=== PATIENT | female | born 1990 | race Caucasian/White ===

== ENCOUNTER 2017-05-24 16:35 | Outpatient (CLI) | payer BC, MEDICAID, SELFPAY ==
[2017-05-24 17:03] VITALS: BMI 31.1
--- NOTE | 2017-05-25 18:20 | OB.TRI.NOTE ---
History of Present Illness Date of Service: 05/24/17 Was patient seen by the physician?: No Reason For Visit: ABDOMINAL PAIN Date of Service: 05/24/17 Final NEHEMIAS: 09/29/17 Final NEHEMIAS Source: US <20 weeks Gestational age: 21 Weeks and 6 Days History of Present Illness: Presented to L&D with left sided pain that extended to upper abdomen. Denied any other symptoms. Home Medications Medication Instructions Recorded Ondansetron [Zofran Odt] 8 mg PO Q8H PRN PRN #20 tab 02/08/17 Vit Calc,Iron,Folic 1 tab PO DAILY 05/24/17 [ Vitamins] Allergies erythromycin base Allergy (Verified 05/24/17 17:05) Unknown Sulfa (Sulfonamide Antibiotics) Allergy (Verified 02/09/17 14:34) Unknown tree nut [Tree Nut] Allergy (Verified 02/09/17 14:34) Anaphylaxis NST - FHR Rate Baby A Baseline: 145 NST Reactive:: Appropriate for gestational age Uterine Activity:: None Impression/Plan A: Single IUP at 21w4d by 1st trimester U/S Round Ligament pain P: 1) NST and D/C home.
== END 2017-05-24 17:30 | disposition home or self-care (01) ==
LOC: WPOUT 16:49 → WP 16:51
PROVIDERS: Visit Provider Advanced Practice Midwife
DX: O26.892 Other specified pregnancy related conditions, second trimester (principal); R10.2 Pelvic and perineal pain; Z3A.21 21 weeks gestation of pregnancy
CPT/HCPCS: 99218; G0378

== ENCOUNTER 2017-06-06 08:00 | Outpatient (CLI) | payer BC, MEDICAID, SELFPAY ==
[2017-06-06 08:22] VITALS: BMI 30.9
[2017-06-06 09:30] LABS: Hematocrit 36.9 % (37-47); Hemoglobin 12.2 g/dl (12.0-15.0); Mean Corp Hgb Conc 33.1 g/gl (32-36); Mean Corpuscular Hgb 28.2 pg (27.0-32.0); Mean Corpuscular Volume 85.4 fL (81-99); Mean Platelet Vol. 9.1 fl (6.2-12.0); Platelet Count 264 K/mm3 (150-450); RBC Distribution Width CV 13.1 % (11.6-14.6); RBC Distribution Width SD 40.8 fl (35.1-43.9); Red Blood Count 4.32 M/mm3 (4.2-5.4); White Blood Count 9.2 K/mm3 (4.4-11.0)
[2017-06-06 09:32] LABS: Scan Indicated on CBC? Y/N NO
[2017-06-06 09:35] LABS: International Normalized Ratio 1.1; Partial Thromboplast Time 31.5 Seconds (24.1-36.2)
--- NOTE | 2017-06-06 13:05 | OB.TRI.NOTE ---
History of Present Illness Date of Service: 06/06/17 Was patient seen by the physician?: Yes Reason For Visit: SPOTTING Date of Service: 06/06/17 Final NEHEMIAS: 09/29/17 Final NEHEMIAS Source: US <20 weeks Gestational age: 23 Weeks and 4 Days History of Present Illness: 27yo @ 23.4 wks c/o bleeding since last night. pt reports having foreplay with partner - denies any penetration- started bleeding last night with clots today. denies significant pain. pt HAS COMPLETE PLACENTA PREVIA ON LAST ULTRASOUND Home Medications Medication Instructions Recorded Ondansetron [Zofran Odt] 8 mg PO Q8H PRN PRN #20 tab 02/08/17 Vit Calc,Iron,Folic 1 tab PO DAILY 05/24/17 [ Vitamins] Allergies erythromycin base Allergy (Verified 06/06/17 08:23) Unknown Sulfa (Sulfonamide Antibiotics) Allergy (Verified 06/06/17 08:23) Unknown tree nut [Tree Nut] Allergy (Verified 06/06/17 08:23) Anaphylaxis Physical Exam General: Alert, Oriented x3 Abdomen: Soft, Non Tender, Gravid Cervix Dilation (cm): 0 - ON SPECULUM EXAM- no active bleeidng. Brown discharge. Cervix appears thick and closed. Station: -3 Effacement (%): 0 NST - FHR Rate Baby A Baseline: 140 Variability:: Moderate Accelerations:: 10 x 10 Decelerations:: None NST Reactive:: Yes, Appropriate for gestational age FHR Category:: Category I Uterine Activity:: irritability Impression/Plan 27yo with COmplete placenta previa- 23.4 wks gestation with vaginal bleeding 1) PELVIC REST reviewed- no strenous exercise 2) Labs reviewed 3) bleeding precautions reviewed 4) F/u in office next week.
== END 2017-06-06 12:00 | disposition home or self-care (01) ==
LOC: WPOUT 08:05 → WP 08:06
PROVIDERS: Visit Provider Obstetrics & Gynecology
DX: O44.12 Complete placenta previa with hemorrhage, second trimester (principal); Z3A.23 23 weeks gestation of pregnancy
CPT/HCPCS: 36415; 59025; 59050; 85027; 85610; 85730; 99218; G0378

== ENCOUNTER 2017-09-14 22:12 | Outpatient (CLI) | payer BC, MEDICAID, SELFPAY ==
[2017-09-14 22:36] VITALS: BMI 32.8
[2017-09-14] MEDS: Acetaminophen 500 MG Tablet 1000 MG PO (22:51)
[2017-09-14 22:59] LABS: Protein, Urine (Random) 22.4 mg/dL (<11.9); Protein:Creat Ratio 122 mg/g CRE (0-200)
[2017-09-14 23:25] LABS: Bacteria 0 SEEN /hpf (None Seen); Mucous, Urine 0 SEEN /hpf (<or=2+); Red Blood Cells-Urine 0 SEEN /hpf (0-5)
[2017-09-14 23:38] LABS: Color, Urine Yellow (Yellow); Glucose, Dipstick Normal (Normal); Ketone-Dipstick Negative (Negative); Leukocyte Esterase-Dipstick 500 /ul (Negative); Nitrite-Dipstick Negative (Negative); Occult Blood-Urine 10 /ul (Negative); Protein-Dipstick 15 mg/dl (Negative); Specific Gravity, Urine 1.015 (1.002-1.030); Urine Bilirubin Dipstick Negative (Negative); Urine Clarity Cloudy (Clear); Urine Urobilinogen 1 mg/dl (Normal); Urine pH 6.5 (5.0 - 8.0)
--- NOTE | 2017-09-14 23:41 | OB.TRI.NOTE ---
- Problem List (1) Low lying placenta nos or without hemorrhage, third trimester Status: Acute (2) headache in third trimester Status: Acute (3) Breech presentation on examination Status: Acute History of Present Illness Date of Service: 09/14/17 Was patient seen by the physician?: Yes Reason For Visit: R/O LABOR Date of Service: 09/14/17 Final NEHEMIAS: 09/29/17 Final NEHEMIAS Source: US <20 weeks Gestational age: 37 Weeks and 6 Days History of Present Illness: Patient paged provider reporting worsening headache over last 24 hours. Patient reports headache started at 5:00pm yesterday and continued to worsen throughout the day. Patient has tried increasing hydration, rest and drinking small amounts of caffeine at home without any relief. Patient reports she does not have Tylenol in her home or have the means to purchase Tylenol at this time. Patient reports though she has tried to sleep, she has only gotten 2 hours of rest last night. Patient also has been watching her son and other young family members today and that she feels that the noise has worsened the headache. Patient denies scotoma currently, reports seeing ghost-like images last night when she was laying in bed. Denies any other black spots in vision or halos around objects. Patient denies epigastric pain. Patient denies any current vaginal spotting, reports some spotting a few days ago but felt this was related to hard bowel movement. No bleeding, LOF currently. +FM reported. Allergies erythromycin base Allergy (Verified 09/14/17 22:39) Unknown pecan nut Allergy (Verified 09/14/17 22:39) Anaphylaxis Sulfa (Sulfonamide Antibiotics) Allergy (Verified 09/14/17 22:39) Unknown tree nut [Tree Nut] Allergy (Verified 09/14/17 22:39) Anaphylaxis walnut Allergy (Verified 09/14/17 22:39) Anaphylaxis Physical Exam Vitals: Normotensive, Afebrile - see nursing notes for vital signs FHT baseline 150 moderate variability, + accels, no decels noted Ctx uterine variability noted on tocometer, ctx not palpable. Abdomen not rigid, NT x 4 quadrants General: Alert, Oriented x3, Cooperative, No apparent distress HEENT: Atraumatic, PERRLA, EOMI, Normocephalic Cardiovascular: Regular rate, Regular Rhythm Lungs: Normal air movement Abdomen: Soft, Non Tender, Non-Distended, Appropriate for Gestational Age - Breech by Eriberto's Extremities:: No edema Neurological: Deep Tendon Reflexes 2+/4 and Symmetrical Estimated gestational size: Appropriate for gestational size Presentation: Breech - SVE deferred NST - FHR Rate Baby A Baseline: 150 Variability:: Moderate Accelerations:: 15 x 15 Decelerations:: None NST Reactive:: Yes, Appropriate for gestational age FHR Category:: Category I Uterine Activity:: Irritability noted - no ctx palpable Impression/Plan A: 27 y/o @ 37.6wks, Headache in 3rd trimester , Previous LTCS with known Low-lying placenta, Breech Presentation P: 1) BP normotensive and Urinalysis and Urine P/C ratio both in normal range 2) Tylenol 1000mg PO x1 given - patient having some relief 3) Unlikely patient has pre-eclampsia; anticipate discharge to home with instructions for hydration and rest 4) Rx for Tylenol 500mg - Take 2 tablets PO q 8 hours #30 dispensed to help evacuate patient's headache 5) Labor and pre-eclampsia precautions reviewed 6) Patient to RTC as scheduled for [facility]
[2017-09-14 23:49] LABS: Squamous Epithelial Cells - UA > 100 SEEN /hpf (5-10); White Blood Cells 25-50 SEEN /hpf (0-5)
== END 2017-09-15 00:05 | disposition home or self-care (01) ==
LOC: WPOUT 22:19 → WP 22:20
PROVIDERS: Advanced Practice Midwife; Visit Provider Obstetrics & Gynecology
DX: O44.43 Low lying placenta NOS or without hemorrhage, third trimester (principal); O32.1XX0 Maternal care for breech presentation, not applicable or unspecified; O34.211 Maternal care for low transverse scar from previous cesarean delivery; Z3A.37 37 weeks gestation of pregnancy
CPT/HCPCS: 59025; 59050; 81001; 82570; 84156; 99218; G0378

== ENCOUNTER 2017-09-22 10:05 | Inpatient (IN) | payer BC, MEDICAID, SELFPAY ==
[2017-09-16 15:29] VITALS: BMI 32.9
[2017-09-22] VITALS (18 sets, daily range): BP systolic 88–115; BP diastolic 47–73; PULSE 64–85; RESP 14–18; TEMP 36.3–36.9; O2SAT 95–99
[2017-09-22] MEDS: Lactated Ringers 1,000 ML 999 ML IV (10:30)
[2017-09-22 10:45] LABS: Absolute Lymphocyte Count 1.56 X10^3/ul (0.83-4.51); Absolute Neutrophil Count 5.4 X10^3/uL (2.0-7.7); Basophil# 0.01 X10^3/uL; Basophil% 0.1 % (0-1); Eosinophils% 2.6 % (0-5); Hematocrit 34.2 % (37-47); Lymphocyte # 1.56 X10^3/ul (4.0); Lymphocyte % 19.9 % (19-41); Mean Corp Hgb Conc 32.2 g/gl (32-36); Mean Corpuscular Hgb 25.2 pg (27.0-32.0); Mean Corpuscular Volume 78.3 fL (81-99); Mean Platelet Vol. 9.9 fl (6.2-12.0); Monocyte# 0.63 X10^3/uL; Neutrophil # 5.42 X10^3/uL (2.7-7.7); Neutrophil % 69.3 % (47-70); POSITIVE COUNT NO; POSITIVE DIFFERENTIAL NO; POSITIVE MORPHOLOGY NO; Platelet Count 264 K/mm3 (150-450); RBC Distribution Width CV 13.6 % (11.6-14.6); RBC Distribution Width SD 38.2 fl (35.1-43.9); Red Blood Count 4.37 M/mm3 (4.2-5.4); White Blood Count 7.8 K/mm3 (4.4-11.0)
[2017-09-22] MEDS: 0.9% Saline Lock 10 ML Syringe IV (10:45)
[2017-09-22 10:54] LABS: International Normalized Ratio 1.1; Prothrombin Time (Protime)PT. 14.2 SECONDS (11.7-14.9)
[2017-09-22 10:55] LABS: Partial Thromboplast Time 30.9 Seconds (24.1-36.2)
[2017-09-22] MEDS: Lactated Ringers 1,000 ML 150 ML IV (11:10)
[2017-09-22] MEDS: Sodium Citrate/Citric Acid 30 ML UDC PO (11:32)
[2017-09-22] MEDS: Cefazolin 2 GM in 0.9% Normal Saline 100 ML IV (11:56)
[2017-09-22] MEDS: Oxytocin 30 units/NS 500 ml 30 UNITS/500 ML IV.SOLN 167 UNITS IV (12:18)
--- NOTE | 2017-09-22 12:45 | PCM.OB.CSR ---
Delivery Classification: Scheduled Final NEHEMIAS: 09/29/17 Final NEHEMIAS Source: US <20 weeks Gestational age: 39 Weeks and 0 Days Indications: elective repeat c/s Indications for : Repeat Elective Description of Procedure: Surgeon: Dr. Rhoda Paul Iron Molder Helper: CRISTINO Panda Procedure performed: Repeat section, Anesthesia: Spinal Preoperative diagnosis: Term gestation 39weeks gestation for an elective repeat section Postoperative Diagnosis: same- live female Findings: Live female infant born without complication. significant adhesions to uterus - unable to exteriorize uterus. unable to visualize tubes and ovaries. Bladder adhesions taken down without difficulty. EBL:800 cc Implantable devices: None Drains: katz Operative note: After informed consent was obtained the patient was taken to the operating room she was given spinal anesthesia. He was placed in the supine position. She was then prepped and draped in normal sterile fashion. Once spinal anesthesia was found to be adequate skin incision was made with a scalpel in a Pfannenstiel fashion. It was carried down to the underlying layer of the fascia. Fascia was then incised midline with scapel and extended laterally using curved benavides. 2 straight Lucinda's were placed in the superior aspect of the fascial edge and the rectus muscles were dissected off sharply. Attention was then turned to the inferior aspect where again the fascial edge was grasped with 2 straight Lucinda clamps tented up and the rectus muscle dissected off [bluntly]. At this time the rectus muscles were grasped in the midline using 2 Allis clamps and scalpel was used to separate the rectus muscles. peritoneum was grasped with kellys teneted up and incision with Metzenbaum scissors. Metzenbaums were used to take down the rectus muscles inferiorly. significant adhesions of peritoneum to anterior uterus- unable to place hand to uterine fundus or pelvic side valente due to adhesions . At this time the vesicouterine peritoneum was identified. Metzenbaum scissors were used to take down bladder adhesions. Uterine incision was made in a low transverse fashion with the scalpel and then entered bluntly. placenta location just anterior to incision- no accreta noted. Gentle opposing traction was placed to extend the uterine incision. The membranes were ruptured amniotic fluid clear. 's head was then brought to the uterine incision was delivered atraumatically followed by the rest 's body. At this time delayed cord clamping was NOT performed due to placenta being manipulated during delivery. infant mouth and nose were suctioned. was then handed to the waiting nursery team. The placenta was then removed with gentle traction. The uterus remained in cavity as I was unable to exteriorize it due to adhesions. uterus was cleared of all clots and debris using a moist lap. Ring clamps were placed on the uterine angles. #1 Vicryl suture was used in a running locked fashion for the first layer. Followed by multiple Figure of eight sutures for hemostasis. Fabricio was placed- good hemostasis appreciated. The Mulscle/peritoneum was grasped with Kellys and was reapproximated using #2 Vicryl suture in a running fashion. The fascia was then reapproximated using #1 Vicryl in a running fashion. Subcutaneous layer was evaluated and Bovie was used for any small oozing that was noted per #2-0 plain gut suture was then used to reapproximate the subcutaneous layer. Remaining fabricio placed. 4-0 Vicryl on a Aniceto needle was used to reapproximate the skin in a subcutaneous fashion. Dry sterile dressing was applied. Instrument lap needle count were correct ?2. Anticipated normal postoperative course for this patient. Amniotic Membrane Rupture Type: Artificial Amniotic Fluid Description: Clear Placenta Disposition: [facility] Drain: Katz to straight drain Cord Entanglement: None Cord Vessel Description: 3 Vessels Esitmated Blood Loss (ml): 800 Infant Gender: Female (1 minute): 9 (5 minute): 9 Delayed cord clamping: No Pre-op Antibiotic Given: Ancef 2 grams IV x1 Pt instructed on risks of surgery: Bleeding, Anesthesia Risks, Infection, Need for Future C-Sections, Injury to surrounding structure(s) including bowel and bladder Complications: None - Admit VTE Documentation VTE Present on Admission: No VTE Mechan Device Prophylaxis: SCD's VTE Pharm Prophylaxis ordered?: No
--- NOTE | 2017-09-22 12:54 | OP.PCM_ITS ---
Delivery Classification: Scheduled Final NEHEMIAS: 09/29/17 Final NEHEMIAS Source: US <20 weeks Gestational age: 39 Weeks and 0 Days Indications: elective repeat c/s Indications for : Repeat Elective Description of Procedure: Surgeon: Dr. Rhoda Paul Gem Expert: CRISTINO Panda Procedure performed: Repeat section, Anesthesia: Spinal Preoperative diagnosis: Term gestation 39weeks gestation for an elective repeat section Postoperative Diagnosis: same- live female Findings: Live female infant born without complication. significant adhesions to uterus - unable to exteriorize uterus. unable to visualize tubes and ovaries. Bladder adhesions taken down without difficulty. EBL:800 cc Implantable devices: None Drains: katz Operative note: After informed consent was obtained the patient was taken to the operating room she was given spinal anesthesia. He was placed in the supine position. She was then prepped and draped in normal sterile fashion. Once spinal anesthesia was found to be adequate skin incision was made with a scalpel in a Pfannenstiel fashion. It was carried down to the underlying layer of the fascia. Fascia was then incised midline with scapel and extended laterally using curved benavides. 2 straight Lucinda's were placed in the superior aspect of the fascial edge and the rectus muscles were dissected off sharply. Attention was then turned to the inferior aspect where again the fascial edge was grasped with 2 straight Lucinda clamps tented up and the rectus muscle dissected off [ bluntly]. At this time the rectus muscles were grasped in the midline using 2 Allis clamps and scalpel was used to separate the rectus muscles. peritoneum was grasped with kellys teneted up and incision with Metzenbaum scissors. Metzenbaums were used to take down the rectus muscles inferiorly. significant adhesions of peritoneum to anterior uterus- unable to place hand to uterine fundus or pelvic side valente due to adhesions . At this time the vesicouterine peritoneum was identified. Metzenbaum scissors were used to take down bladder adhesions. Uterine incision was made in a low transverse fashion with the scalpel and then entered bluntly. placenta location just anterior to incision- no accreta noted. Gentle opposing traction was placed to extend the uterine incision. The membranes were ruptured amniotic fluid clear. Infant's head was then brought to the uterine incision was delivered atraumatically followed by the rest infant's body. At this time delayed cord clamping was NOT performed due to placenta being manipulated during delivery. infant mouth and nose were suctioned. Infant was then handed to the waiting nursery team. The placenta was then removed with gentle traction. The uterus remained in cavity as I was unable to exteriorize it due to adhesions. uterus was cleared of all clots and debris using a moist lap. Ring clamps were placed on the uterine angles. #1 Vicryl suture was used in a running locked fashion for the first layer. Followed by multiple Figure of eight sutures for hemostasis. Fabricio was placed - good hemostasis appreciated. The Mulscle/peritoneum was grasped with Kellys and was reapproximated using #2 Vicryl suture in a running fashion. The fascia was then reapproximated using #1 Vicryl in a running fashion. Subcutaneous layer was evaluated and Bovie was used for any small oozing that was noted per #2-0 plain gut suture was then used to reapproximate the subcutaneous layer. Remaining fabricio placed. 4-0 Vicryl on a Aniceto needle was used to reapproximate the skin in a subcutaneous fashion. Dry sterile dressing was applied. Instrument lap needle count were correct ?2. Anticipated normal postoperative course for this patient. Amniotic Membrane Rupture Type: Artificial Amniotic Fluid Description: Clear Placenta Disposition: [facility] Drain: Katz to straight drain Cord Entanglement: None Cord Vessel Description: 3 Vessels Esitmated Blood Loss (ml): 800 Gender: Female (1 minute): 9 (5 minute): 9 Delayed cord clamping: No Pre-op Antibiotic Given: Ancef 2 grams IV x1 Pt instructed on risks of surgery: Bleeding, Anesthesia Risks, Infection, Need for Future C-Sections, Injury to surrounding structure(s) including bowel and bladder Complications: None - Admit VTE Documentation VTE Present on Admission: No VTE Mechan Device Prophylaxis: SCD's VTE Pharm Prophylaxis ordered?: No
[2017-09-22] MEDS: Lactated Ringers 1,000 ML 100 ML IV ×2 (13:46→23:00)
--- NOTE | 2017-09-22 13:55 | NURSING ---
Ok with Patricia to administer patient's first dose of Toradol at this time. Patient did not receive Toradol in the OR.
[2017-09-22] MEDS: Ketorolac 30 MG/ML Syringe IV ×2 (14:08→20:05)
--- NOTE | 2017-09-22 15:35 | NURSING ---
Bedside shift report given to Tamera Churchill RN. She will assume care at this time.
--- NOTE | 2017-09-22 15:36 | NURSING ---
Bedside shift report given to Tamera Churchill RN. She will assume care at this time.
[2017-09-23] VITALS (9 sets, daily range): BP systolic 90–104; BP diastolic 41–71; PULSE 74–95; RESP 16–18; TEMP 36.6–37.2; O2SAT 96–100
[2017-09-23] MEDS: Ketorolac 30 MG/ML Syringe IV ×4 (02:16→20:18)
[2017-09-23] MEDS: Senna/Docusate Sodium 1 Tablet PO (07:46)
[2017-09-23] MEDS: 0.9% Saline Lock 10 ML Syringe IV ×3 (07:46→20:18)
[2017-09-23 08:08] LABS: Hematocrit 24.9 % (37-47); Mean Corp Hgb Conc 32.1 g/gl (32-36); Mean Corpuscular Hgb 25.9 pg (27.0-32.0); Mean Corpuscular Volume 80.6 fL (81-99); Mean Platelet Vol. 9.8 fl (6.2-12.0); Platelet Count 210 K/mm3 (150-450); RBC Distribution Width CV 13.5 % (11.6-14.6); RBC Distribution Width SD 38.1 fl (35.1-43.9); Red Blood Count 3.09 M/mm3 (4.2-5.4); White Blood Count 9.1 K/mm3 (4.4-11.0)
[2017-09-23 08:11] LABS: Scan Indicated on CBC? Y/N NO
--- NOTE | 2017-09-23 08:19 | PCM.PN.OB ---
Subjective: Pt seen at bedside, doing well. pain controlled. lochia mild. katz in place. denies CP, SOB, dizziness. - Physical Exam General: Alert, Oriented x3 Abdomen: Soft, Non-Distended, - - fundus firm. dressing intact and dry Extremities: No Calf Tenderness Vital Signs Temp Pulse Resp BP Pulse Ox 98 F 76 16 90/48 L 98 09/23/17 08:09 09/23/17 08:09 09/23/17 08:09 09/23/17 08:09 09/23/17 06:00 Oxygen Delivery Method Room Air Weight: 79.1 kg Body Mass Index (BMI) 32.9 Intake and Output for Last 24 Hours 09/21/17 09/22/17 09/23/17 23:59 23:59 23:59 Intake Total 2958 / 2958 Output Total 300 / 300 380 / 380 Balance 2658 / 2658 -380 / -380 Laboratory Tests Past 24 Hrs 09/22/17 09/22/17 09/22/17 10:30 10:30 10:30 WBC 7.8 RBC 4.37 Hgb 11.0 L Hct 34.2 L MCV 78.3 L MCH 25.2 L MCHC 32.2 RDW 13.6 RDW Differential 38.2 Plt Count 264 MPV 9.9 Immature Gran % (Auto) 0.100 Neut % (Auto) 69.3 Lymph % (Auto) 19.9 [place] % (Auto) 8.0 Eos % (Auto) 2.6 Baso % (Auto) 0.1 Absolute Neuts (auto) 5.4 Absolute Lymphs (auto) 1.56 Total Counted Not Reportable PT 14.2 INR 1.1 APTT 30.9 Blood Type O POSITIVE Antibody Screen NEGATIVE 09/23/17 07:50 WBC 9.1 RBC 3.09 L Hgb 8.0 L Hct 24.9 L MCV 80.6 L MCH 25.9 L MCHC 32.1 RDW 13.5 RDW Differential 38.1 Plt Count 210 MPV 9.8 Immature Gran % (Auto) Neut % (Auto) Lymph % (Auto) [place] % (Auto) Eos % (Auto) Baso % (Auto) Absolute Neuts (auto) Absolute Lymphs (auto) Total Counted PT INR APTT Blood Type Antibody Screen Medical Necessity - Tobacco Use Smoking Status: Never smoker Assessment/Plan All Active Problems Low lying placenta nos or without hemorrhage, third trimester (Acute) headache in third trimester (Acute) Breech presentation on examination (Acute) Herpes labialis (Acute) Tachycardia (Acute) POD#1, doing well routine care cbc pending ambulation dc katz
--- NOTE | 2017-09-23 08:23 | DCINST_ITS ---
Discharge Diet: No Restrictions Discharge Activity: Return to Normal Activity, May Not Drive - for 2 weeks, May not drive while taking narcotic pain medications., May Shower, May Take a Tub Bath - in 7 days. May resume sexual activity in: 4-6 weeks Lifting Restrictions: 20 pounds Additional Activity Instructions:: Nothing in the vagina for 4-6 weeks. You may return to work/school in 6 weeks. Call your doctor if your incision/area has: Continuous Slow Oozing, Sudden Increased Bleeding, Increased Pain/ Swelling, Increased Redness, Foul Smelling Discharge Call your doctor if you observe: Fever of 101 or Higher, Using more than one pad per hour - for 2 hours Suture Line Care: Avoid Pulling/Pushing, Avoid Pinching/Bending Cleanse incision/area with: Keep Dressing Clean & Dry Additional Instructions: If you experience any of the following, contact your healthcare provider. * Bleeding that soaks a pad every hour for 2 hours * Fever 100.4 or higher * Unrelieved incision or abdominal pain * Swelling, redness, discharge or bleeding from your incision or episiotomy site * Your incision begins to separate * Problems urinating (including inability to urinate or burning while urinating) . * Visual changes * Severe headache * Flu-like symptoms * Pain or redness in one of both of your breasts * Pain, warmth, tenderness or swelling in your legs, especially the calf area * Frequent nausea and vomiting * Symptoms of depression or anxiety If you experience any of the following, call 911 or go to the nearest Emergency Room. * Chest pain * Problems breathing * Seizure activity * Partial or complete paralysis of a body part, slurred speech, weakness or drooping of the face, or a sudden inability to walk or hold your balance Allergies/Adverse Reactions: Allergies erythromycin base Allergy (Verified 09/14/17 22:39) Unknown pecan nut Allergy (Verified 09/14/17 22:39) Anaphylaxis Sulfa (Sulfonamide Antibiotics) Allergy (Verified 09/14/17 22:39) Unknown tree nut [Tree Nut] Allergy (Verified 09/14/17 22:39) Anaphylaxis walnut Allergy (Verified 09/14/17 22:39) Anaphylaxis Medications to take at Discharge Halobetasol Propionate [Ultravate] 50 gm TP PRN PRN 09/14/17 Ibuprofen [Motrin] 800 mg PO Q8H PRN PRN #30 tab 09/23/17 Oxycodone HCl/Acetaminophen [Percocet 5/325] 1 tablet PO Q6H PRN PRN 7 Days #28 tablet 09/23/17 Senna/Docusate Sodium [Senokot-S] 1 tab PO DAILY PRN #30 tab 09/23/17 SimETHICONE [Mylicon] 80 mg PO PCHS PRN #30 tab 09/23/17 The following prescriptions were given: Oxycodone HCl/Acetaminophen [Percocet 5/325] 1 tablet PO Q6H PRN PRN 7 Days #28 tablet PRN Reason: Pain Ibuprofen [Motrin] 800 mg PO Q8H PRN PRN #30 tab PRN Reason: Pain Senna/Docusate Sodium [Senokot-S] 1 tab PO DAILY PRN #30 tab PRN Reason: Constipation SimETHICONE [Mylicon] 80 mg PO PCHS PRN #30 tab PRN Reason: Indigestion/stomach pain Follow-Up: Call to make an appointment with your doctor for an incision check in 1-2 weeks. You will also need a 6 week post- follow up appointment. Please Follow Up With: Rhoda Paul MD - Call to make an appointment for an incision check in 1-2 [phone] When: 2 weeks post op check and thenYou will need a post- check in 6 weeks. Primary Care Physician: Care Physician,No Primary [Primary Care Provider] -
--- NOTE | 2017-09-23 16:35 | CASEMGMT ---
Social Work Assessment Labor and Delivery Unit Date of Referral: 09/23/2017 Time of Referral: 08 Referred By: verbal notification from nursing Date of Intervention: 09/23/2017 Time of Intervention: 1630 Reason for Referral: Maternal history of marijuana early in History obtained from: mother of baby (MOB) Radha Shin and medical record; father of baby (FOB) present for part of conversation and contributed throughout time in room. Household composition: MOB, FOB, and older son. Plan to take to this home at discharge. Patient's parent/guardian status: MOB and FOB Matthew Du have been together for almost 7 years. Privately, MOB denies any form of abuse other than one time before older son was born. MOB denies any safety concerns, or any form of abuse. Minor children from this relationship: Ariel Du (born 04[birth year]08[birth year]2013) and Hal Du (born 09[birth year]17). Medical History: MOB is G3, P1 to 2 after delivering Hal. MOB reports a 5 week loss 3 months before conceiving Hal. care this started at 7 weeks. Infant born vie repeat caesarian section, weighing 3000 grams, Apgars 9 and 9. Educational Status: MOB with high school education. Denies any issues with reading, writing, or learning comprehension. 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 Financial Status: MOB does not work outside of the home. FOCar currently works at [employer] but will be starting fulltime employment at [employer] on 10-06-17. FOCar reports this will be a significant pay raise with benefits, and anticipates will help the family out financially. Supplies: Reports to have needed supplies including pack-n-play, rock-n-play, car seat, clothing, diapers, wipes, a few bottles, plans to get a breast pump. Reports to have a few sample bottles of formula should there be a need to supplement. Childcare/Caregiver(s): MOB Transportation: MOB has a drivers license and car. Programs/Agencies Involved: MOB reports to have medical and food through S. MOB reports to have WIC for self and for Ariel, will get baby on WIC now that born. MOB and FOB report history of [facility] for Ariel and reports this went well while had the services; family declines referral to [facility] or to early head start for at this time. Children Services/Legal Issues: Denies any legal issues. Denies any history of involvement with children services. Behavioral Health Issues: Mental Health History: Addressed privately maternal history of depression, prior to FOB, with MOB with history of depression as a teen, prescribed medication but never really took the medicine. C record also indicates MOB with history of self injury. MOB reports this was years ago as a teen, not since having children. MOB denies any thoughts, plans, intent, or attempt of suicide. While FOB present addressed depression and anxiety. MOB denied any history though FOB spoke up and reported that MOB did have some depression, which surfaced around the time that MOB had to stop . MOB did not seek out any formal intervention during this time. Substance Use History: MOB denies use of alcohol, states does not like to drink. MOB reports did use marijuana prior to knowledge of , and denies any use after knowledge. 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 MOB admits that did use marijuana during first to help treat nausea and vomiting, but realized this that marijuana would not be good to expose baby to. MOB denies any history of other illicit drug use such as heroin, cocaine, methamphetamines, or narcotic pills. MOB denies tobacco use also. Drug Screens: MOB had a positive drug screen on 02-17-17 at second visit. No further testing noted and baby was not tested at delivery. Family/Social Stressors: FOB reports finances have been tight recently due to GAIL losing a well-paying factor job and having to go back to work at [employer]. FOB and MOB are both hopeful for the new job opportunity that GAIL is getting. Support Systems: MOB reports to have support from FOB, MOBs mom and dad who live locally. MOB reports family will be around to help, but has not formalized anyone being at home with MOB for a few days at discharge. MOB reports to feel this will be okay, and that FOB will be available to help and that FOB is helpful when at home. Depression/Shaken Baby/Safe Sleeping: Parents able to give appropriate responses to shaken baby and safe sleeping. Educated to depression, risks present, and importance of MOB seeking support and letting others know should symptoms arise. ASSESSMENT: MOB and FOB both cooperative with social work visit. Both engaged in conversation, at times FOB tended to answer questions, though if MOB disagreed with FOB the MOB did speak up. Both were polite. Observed both to be attentive to infant, gentle and appropriate in how interacting with baby. FOB did leave room willingly when social work nurse asked, and MOB did speak up more, was more spontaneous. MOB held good eye contact throughout. Calm a motor activity with and without FOB. MOB reports to have some anxieties during but not so much depression, and some of the anxiety resulted from MOB having a miscarriage before Hal was conceived, and not wanting to go through that again. MOB reports willingness to ask for help if needed and reports that support system in place is reliable. MOB denies any needs at this time for home going, reports to have needed baby supplies, to have transportation, WIC and services through [facility]. MOB and FOB both interested in getting son Ariel into some services to help prepare him for school, and both provided verbal permission for social work nurse to make a head start referral to [facility]. MOB denies intent for use of marijuana, and states did not use after knowledge of . No testing to indicate continued use. No reports of baby having any complications or medical issues after . PLAN: MOB and baby to home at time of discharge. Will see MOB one more time to give some additional referrals/resources for home going. -NERY Marcum, LAB[employer]
[2017-09-24] MEDS: 0.9% Saline Lock 10 ML Syringe IV ×2 (01:10→08:13)
[2017-09-24] MEDS: Ketorolac 30 MG/ML Syringe IV ×2 (01:10→08:12)
[2017-09-24 01:14] VITALS: BP 111/71; PULSE 99; RESP 18; TEMP 36.7; O2SAT 97
[2017-09-24 08:19] VITALS: BP 103/70; PULSE 91; RESP 18; TEMP 36.7
--- NOTE | 2017-09-24 08:20 | PCM.PN.OB ---
Subjective: Patient laying in bed, holding and bonding at this time. Patient reports baby is latching well currently. Patient denies any issues with ambulation and urination. Reports incisional pain has been well controlled with PO meds. Patient desiring discharge to home today. Objective: Nipples without cracks or blisters, no erythema noted Abdomen NT x 4 quadrants, FF 2FB midline below umbilicus Dressing dry and intact +2/3 reflexes in LE, no edema, no bilateral calf tenderness to palpation Scant rubra lochia - Physical Exam General: Alert, Oriented x3, Cooperative HEENT: Atraumatic, Normocephalic Neck: Supple Lungs: Clear to auscultation, Normal air movement Cardiovascular: Regular rate, No murmurs Abdomen: Soft, Non Tender, - - Incisional dressing dry and intact, no exudate or erythema noted around dressing Extremities: No edema, Capillary Refill Less than 3 Seconds Skin: No breakdown Musculoskeletal: No Tenderness to Palpation of Joints or Extremities Neurological: Cranial nerves II-XII grossly intact Psych/Mental Status: Normal Affect, Appropriate, Alert and oriented to time, place, person, mood and affect Vital Signs Temp Pulse Resp BP Pulse Ox 98.1 F 99 18 111/71 97 09/24/17 01:14 09/24/17 01:14 09/24/17 01:14 09/24/17 01:14 09/24/17 01:14 Oxygen Delivery Method Room Air Weight: 174 lb 6.17 oz Body Mass Index (BMI) 32.9 Intake and Output for Last 24 Hours 09/22/17 09/23/17 09/24/17 23:59 23:59 23:59 Intake Total 2958 / 2958 800 / 800 Output Total 300 / 300 980 / 980 Balance 2658 / 2658 -180 / -180 Medical Necessity - Tobacco Use Smoking Status: Never smoker Assessment/Plan All Active Problems Low lying placenta nos or without hemorrhage, third trimester (Acute) headache in third trimester (Acute) Breech presentation on examination (Acute) Herpes labialis (Acute) Tachycardia (Acute) 27 y/o s/p repeat LTCS for low-lying placenta, Normal PP Course, POD #2 P: 1) Anticipate discharge to home today pending discharge 2) Encourage friend and family assistance at home to help with transportation and to help care for children - FOB is returning to work tomorrow and will be unable to get paternity leave with his job. 3) RTC for 2 week incision check visit on 10/06/17 with [facility] - already scheduled K[facility]
[2017-09-24 08:21] VITALS: BP 108/69; PULSE 85; RESP 16; TEMP 37.2; O2SAT 97
== END 2017-09-24 13:05 | disposition home or self-care (01) | DRG 370 ==
PROVIDERS: Admitting Provider Obstetrics & Gynecology; Visit Provider Obstetrics & Gynecology
PROC: 10D00Z1 Extraction of Products of Conception, Low, Open Approach (ICD-10-PCS; CPT 59514; principal; 2017-09-22 11:45)
DX: O34.211 Maternal care for low transverse scar from previous cesarean delivery (principal); O44.43 Low lying placenta NOS or without hemorrhage, third trimester; O32.1XX0 Maternal care for breech presentation, not applicable or unspecified; O98.32 Other infections with a predominantly sexual mode of transmission complicating childbirth; A60.04 Herpesviral vulvovaginitis; O99.214 Obesity complicating childbirth; Z68.32 Body mass index [BMI] 32.0-32.9, adult; Z79.899 Other long term (current) drug therapy; Z86.2 Personal history of diseases of the blood and blood-forming organs and certain disorders involving the immune mechanism; Z3A.39 39 weeks gestation of pregnancy; Z37.0 Single live birth
CPT/HCPCS: 85025; 85027; 85610; 85730; 86850; 86900; 99218; J7120; A4216; G0378

== ENCOUNTER 2017-10-17 15:53 | Outpatient (CLI) | payer MEDICAID, SELFPAY | END 2017-10-17 17:00 | disposition home or self-care (01) | LOC: WPOUT 15:56 → WP 15:56 | PROVIDERS: Visit Provider Obstetrics & Gynecology | DX: Z39.1 Encounter for care and examination of lactating mother (principal) | CPT/HCPCS: 96152 ==

== ENCOUNTER 2018-01-06 10:15 | Outpatient (CLI) | payer MEDICAID, SELFPAY ==
--- NOTE | 2018-01-06 11:37 | NURSING ---
Encouraged mother to give 2 oz of formula after session during consult. Mother attempted three times and baby had trouble bottle feeding, mother states she thinks she needs the bottles and nipples that she has at home states she takes those bottles very well and so mother took formula with her and states she will give the baby a bottle in the car with her bottles/nipples. Baby did appear fussy during session but mother states this is not typical for her.
== END 2018-01-06 11:20 | disposition home or self-care (01) ==
LOC: WPOUT 10:16 → WP 10:16
PROVIDERS: Referring Provider Obstetrics & Gynecology; Visit Provider Obstetrics & Gynecology
DX: Z39.1 Encounter for care and examination of lactating mother (principal)
CPT/HCPCS: 96152

== ENCOUNTER 2019-09-29 19:42 | Emergency (ER) | payer MEDICAID, SELFPAY ==
[2019-09-29 19:42] VITALS: BP 165/84; PULSE 90; RESP 18; TEMP 36.9; O2SAT 99; BMI 32.9
--- NOTE | 2019-09-29 20:43 | ED.VIS.GEN ---
History of Present Illness Chief Complaint: Headache Informant: Patient Onset: - - 1.5 years Timing: Waxes and wanes Current Severity: Mild Maximum Severity: Moderate Narrative: 29-year-old female presents with headache that she has had for a year and a half intermittently. She states it feels like a pressure and she feels a pop and then her headache just feels like a normal headache. She has no history of migraines. No fevers, chills, neck pain, cough, shortness of breath, weakness, dizziness, visual changes. Prior similar symptoms: Yes Recent Illness/Hospitalization: No Past Medical History - Allergies and Home Meds Allergies/Adverse Reactions: Allergies erythromycin base Allergy (Verified 09/29/19 19:45) Unknown pecan nut Allergy (Verified 09/29/19 19:45) Anaphylaxis Sulfa (Sulfonamide Antibiotics) Allergy (Verified 09/29/19 19:45) Unknown tree nut [Tree Nut] Allergy (Verified 09/29/19 19:45) Anaphylaxis walnut Allergy (Verified 09/29/19 19:45) Anaphylaxis Primary Care Physician: Care Physician,No Primary [Primary Care Provider] - Past Medical History: None Surgical History: - - . Smoking Status: Never smoker Drugs: None Review of Systems General: Denies: Chills, Fever, Malaise Eyes: Denies: Visual changes - left, Blurred vision - left ENT: Denies: Bilateral ear pain Cardiovascular: Denies: Chest pain Respiratory: Denies: Dyspnea, Cough Gastrointestinal: Denies: Abdominal pain, Nausea, Vomiting Musculoskeletal: Denies: Myalgias Neurological: Reports: Headache. Denies: Weakness Psych: Denies: Depression, Anxiety Endocrine: Denies: Polyuria Physical Exam Vital Signs/Narrative: Vital Signs Temp Pulse Resp BP Pulse Ox 09/29/19 19:42 98.4 F 90 18 165/84 H 99 Inital Vital Signs reviewed: Yes General: Well nourished, Well developed Head: Normocephalic, Atraumatic Eyes: Perrl, EOMI ENT: Moist mucous membranes Cardiovascular: Regular rate, Regular rhythm Respiratory: No distress, CTA bilaterally Abdomen: Soft Skin: Normal color, No rash Neurological: Alert, Oriented x3 Psychological: Normal affect Diagnostic/Tx/Re-eval - Medical Decision Making Physical exam is completely normal. She has no neurologic signs or symptoms that I can elicit on exam. She was adamant that she wanted a head CT. This was negative. I counseled her she should keep her appoint with [facility] and to see neurologist. She was amenable to this plan. ED Disposition - Plan for ED Patient: Disposition: Home or Assisted Living Instructions: ED Headache Unspecified Referrals: Care Physician,No Primary [Primary Care Provider] -
--- NOTE | 2019-09-29 21:20 | CT_ITS ---
STUDY: CT BRAIN WITHOUT CONTRAST REASON FOR EXAM: Female, 29 years old. MONTERROSO X 1.5 YEARS, INCREASED TODAY RADIATION DOSAGE (If Supplied By Facility): CTDIvol = ( 44.99 ) mGy, DLP = ( 745.49 ) mGycm TECHNIQUE: Transaxial CT imaging of the brain was performed without administration of intravenous contrast material. Individualized dose optimization techniques were used for this CT. COMPARISON: No relevant priors. FINDINGS: Normal soft tissue structures. Normal calvarium. Normal size ventricles and extra-axial spaces for the patient''s age. Normal white matter tracts of the cerebral hemispheres. Normal basal ganglia and thalami. Normal brainstem. Normal cerebellum. There is no intracranial hemorrhage. There are no findings of an acute ischemic infarction. Normal visualized paranasal sinuses. CT/Brain/Head without Contrast IMPRESSION: Normal unenhanced CT scan of the brain. Electronically Signed: Mariela Torres MD at 21:44 EDT , Service support ,
[2019-09-29 22:02] VITALS: RESP 16
--- NOTE | 2019-09-29 22:29 | ED.VISSUMM ---
- ER Visit Summary Date of Service: 09/29/19 Chief Complaint: [] History of Present Illness: The patient is a 29 F [] Physical Examination: [] Test Results: [] Emergency Department Course and Treatment: [] Treatment Plan: [] Disposition: [] Impression: [] This note was generated with [employer] dictation software. It may contain incorrect words, spelling, and punctuation that were not noted in review of the chart prior to signing ED Disposition - Plan for ED Patient: Disposition: Home or Assisted Living Instructions: ED Headache Unspecified Referrals: Care Physician,No Primary [Primary Care Provider] -
[2019-09-29 22:48] VITALS: RESP 16
== END 2019-09-29 22:48 | disposition home or self-care (01) ==
PROVIDERS: Emergency Provider Student in an Organized Health Care Education/Training Program
DX: R51 Headache (principal); Z79.899 Other long term (current) drug therapy
CPT/HCPCS: 70450; 99282

== ENCOUNTER 2022-06-04 05:07 | Emergency (ER) | payer MEDICAID, SELFPAY ==
[2022-06-04 05:08] VITALS: BP 112/70; PULSE 95; RESP 18; TEMP 36.1; O2SAT 99; BMI 37.5
--- NOTE | 2022-06-04 05:33 | EX.ED.DYSGE1 ---
HPI History of Present Illness Chief Complaint: Sore Throat Informant: patient Narrative Narrative: Patient states she has had a sore throat for about 4 days. It is on both sides. She has felt hot and cold but has not checked to see if she has a fever. She is not coughing or short of breath. She feels she has some swollen lymph nodes. She does not know if she has been around anyone with strep. But she has had strep before and she states this feels the same. She states it hurts when she swallows. But she is able to drink and eat food. Drinking is easier than eating. No nausea or vomiting. She has eczema but is not on any Biologics. PFSH PFSH Home Medications halobetasol propionate 0.05 % topical ointment (Ultravate) 50 g TP PRN PRN skin problems 09/14/17 [History Last Taken Unknown] ibuprofen 400 mg tablet 800 mg PO Q8H PRN PRN Pain #30 tabs 09/23/17 [Rx Last Taken Unknown] oxycodone-acetaminophen 5 mg-325 mg tablet 1 tab PO Q6H PRN PRN Pain 7 days ##28 09/23/17 [Rx Last Taken Unknown] sennosides 8.6 mg-docusate sodium 50 mg tablet 1 tab PO DAILY PRN Constipation #30 tabs 09/23/17 [Rx Last Taken Unknown] simethicone 80 mg chewable tablet 80 mg PO PCHS PRN Indigestion/stomach pain #30 tabs 09/23/17 [Rx Last Taken Unknown] penicillin V potassium 500 mg tablet 500 mg PO 4X/DAY #40 tabs 06/04/22 [Rx Last Taken Unknown] Allergy/AdvReac Type Severity Reaction Status Date / Time erythromycin base Allergy Unknown Verified 06/04/22 05:11 pecan nut Allergy Anaphylaxis Verified 06/04/22 05:11 prednisone Allergy Rash Verified 06/04/22 05:11 Sulfa (Sulfonamide Allergy Unknown Verified 06/04/22 05:11 Antibiotics) tree nut [Tree Nut] Allergy Anaphylaxis Verified 06/04/22 05:11 walnut Allergy Anaphylaxis Verified 06/04/22 05:11 Social History Smoking Status: Never smoker ROS ROS ED Constitutional Constitutional ED: Reports subjective ENT ENT ED: Reports sore throat; Denies ear pain or rhinorrhea Cardiovascular Cardiovascular: Denies chest pain Respiratory/Chest Respiratory/Chest: Denies cough or dyspnea Gastrointestinal Gastrointestinal: Denies nausea or vomiting Musculoskeletal Musculoskeletal: Reports neck pain; Denies myalgias Integumentary Denies rash Neurologic Neurologic: Denies headache(s), paresthesias or weakness Endocrine Endocrinology: Denies polydipsia or polyuria Hematologic/Lymphatic Hematologic/Lymphatic: Reports lymphadenopathy Allergic/Immunologic Allergic/Immunologic ED: Denies tongue swelling or urticaria EXAM Physical Exam Narrative Exam Narrative: Patient is awake alert sitting on the bed. Nontoxic. Carries on normal conversation. HEENT: No sinus tenderness or nasal discharge. Her tonsils are a little bit red. They do appear to have exudate on both of them. But they are not really enlarged any significant degree. They are not even remotely near touching. Uvula looks normal. Her voice is normal. She can handle secretions well. Overall they are red with exudate but really no major change in size from what I would think of is a baseline size. Neck does show some shotty lymphadenopathy on both sides. It seems equal. No stridor. Lungs are clear bilaterally no pain with a deep breath Heart is regular without murmur gallop or rub Abdomen is benign Extremities show some eczematous changes but no other acute process. Const Vital Signs: 06/04/22 05:08 Temperature 96.9 F L Temperature Source Temporal Pulse Rate 95 Respiratory Rate 18 Blood Pressure 112/70 Blood Pressure Mean 84 Pulse Ox 99 Oxygen Delivery Method Room Air MDM MDM MDM Narrative Medical decision making narrative: We have been waiting for the patient's rapid strep. She needs to leave to take care of her children. She does have a erythema exudate lymph nodes and lack of other symptoms. Only symptom of strep she is missing is a fever. I will treat her with penicillin. She states she thinks she might of had a reaction to prednisone in the past but its been over 10 years. I stated that the chart says a rash. She does not know if she had rash or itching or if it was another medicine she got at the same time. We will treat with a dose of Decadron. Because I think this will help her symptoms a lot. Discharge Plan Triage Chief Complaint: Sore Throat ED Provider: Juan Wang Dx/Rx/DC Orders Clinical Impression: Pharyngitis Instructions: ED Pharyngitis, Report Pending Prescriptions: New penicillin V potassium 500 mg tablet 500 mg PO 4X/DAY Qty: 40 0RF No Action sennosides-docusate sodium 1 TABLET tablet 1 tab PO DAILY PRN (Reason: Constipation) Qty: 30 0RF simethicone 80 MG tablet 80 mg PO PCHS PRN (Reason: Indigestion/stomach pain) Qty: 30 0RF ibuprofen 400 MG tablet 800 mg PO Q8H PRN PRN (Reason: Pain) Qty: 30 0RF oxycodone-acetaminophen 1 TABLET tablet 1 tab PO Q6H PRN PRN (Reason: Pain) 7 Days Qty: 28 0RF halobetasol propionate [Ultravate] 50 GM ointment 50 g TP PRN PRN (Reason: skin problems) Primary Care Provider: Care Physician,No Primary Referrals: Ferny Tsai DO [Med Staff - Packing Machine Inspector] - 3-5 Days if not improving Care Physician,No Primary [Primary Care Provider] - Disposition Disposition: Home, Self Care
--- NOTE | 2022-06-04 08:00 | ED.RN ---
decadron given per order. unable to chart against medication
== END 2022-06-04 08:02 | disposition home or self-care (01) ==
PROVIDERS: Emergency Provider Emergency Medicine; Visit Provider Emergency Medicine
DX: J02.9 Acute pharyngitis, unspecified (principal); L30.9 Dermatitis, unspecified
CPT/HCPCS: 87880; 99283

== ENCOUNTER 2023-07-12 22:47 | Emergency (ER) | payer MEDICAID, SELFPAY ==
[2023-07-12 22:48] VITALS: BP 136/78; PULSE 96; RESP 22; TEMP 37; O2SAT 98
--- NOTE | 2023-07-12 23:10 | EX.ED.DYSGE1 ---
HPI History of Present Illness Chief Complaint: Allergic Reaction Informant: patient Narrative Narrative: Patient is a 33-year-old female who denies any significant past medical history. 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 She states she was shopping this evening and then returned home and was eating a cupcake and then roughly 10 to 20 minutes prior to arrival noticed that she was having swelling to her upper lip. She denies any new exposures and states that there is no difficulty breathing or swallowing but based on her history of allergy to tree nuts and lip swelling she was concerned that this would worsen and secondary to that comes in for evaluation [facility] Home Medications epinephrine 0.3 mg/0.3 mL injection, auto-injector 0.3 mg (0.3 mL) IM Q4H PRN anaphylaxis #2 ea 07/13/23 [Rx Last Taken Unknown] prednisone 20 mg tablet 40 mg (2 x 20 mg) PO DAILY 5 days #10 tabs 07/13/23 [Rx Last Taken Unknown] Allergy/AdvReac Type Severity Reaction Status Date / Time sulfisoxazole Allergy Severe Rash Verified 07/12/23 23:31 [From Pediazole] erythromycin base Allergy Unknown Verified 07/12/23 22:54 pecan nut Allergy Anaphylaxis Verified 07/12/23 22:54 prednisone Allergy Rash Verified 07/12/23 22:54 Sulfa (Sulfonamide Allergy Unknown Verified 07/12/23 22:54 Antibiotics) tree nut [Tree Nut] Allergy Anaphylaxis Verified 07/12/23 22:54 walnut Allergy Anaphylaxis Verified 07/12/23 22:54 Social History Smoking Status: Never smoker [facility] ED Constitutional Constitutional ED: Denies chills or fever(s) ENT ENT ED: Reports other Details: Positive upper lip swelling ; Denies rhinorrhea or sore throat Cardiovascular Cardiovascular: Denies chest pain Respiratory/Chest Respiratory/Chest: Denies cough or dyspnea Gastrointestinal Gastrointestinal: Denies abdominal pain, diarrhea, nausea or vomiting Genitourinary Genitourinary ED: Denies dysuria Musculoskeletal Musculoskeletal: Denies myalgias Integumentary Denies rash Neurologic Neurologic: Denies headache(s) Hematologic/Lymphatic Hematologic/Lymphatic: Denies easy bleeding or easy bruising Allergic/Immunologic Allergic/Immunologic ED: Reports mouth swelling; Denies tongue swelling or urticaria EXAM Physical Exam Const Vital Signs: 07/12/23 22:48 Temperature 98.6 F Temperature Source Temporal Pulse Rate 96 Respiratory Rate 22 H Blood Pressure 136/78 H Blood Pressure Mean 97 Pulse Ox 98 Oxygen Delivery Method Room Air Positive well nourished and well developed General Appearance ED: well developed HEENT HEENT Narrative: Patient has swelling to the upper lip with faint surrounding erythema Otherwise there is no tongue swelling noted no swelling to the lower lip no oral lesions no airway edema or compromise no difficulty with secretions trismus or change in voice Eyes PERRL and EOMs intact bilaterally Neck supple Resp normal respiratory effort and clear to auscultation bilaterally Resp Narrative: No nasal flaring retractions tachypnea or accessory muscle use Cardio regular rate and regular rhythm Extremity normal to inspection Extremity Narrative: No asymmetric edema no pitting edema negative Homans' sign bilaterally Neuro oriented x3, CN's II-XII intact bilaterally and no sensory deficits noted Sensorium / Orientation: alert Motor Exam: strength 5/5 throughout Psych mental status grossly normal Skin Skin Narrative: Patient has swelling to the upper lip with faint surrounding erythema most consistent with allergic reaction no secondary changes to suggest infection or trauma MDM MDM MDM Narrative Medical decision making narrative: Patient presented to the ER with stable vitals and in no respiratory distress. There is swelling to the outer lip but no tongue swelling or airway compromise so there is no need for emergent intubation/airway stabilization. Differential diagnosis is for acute allergic reaction versus angioedema versus infection. Patient does have a recent upper lip piercing but this was placed roughly 7 to 10 days ago and the fact that the symptoms came on suddenly and increased over a few minutes indicates this is most likely allergic and not infectious in nature. She did not have airway compromise so there is no need for emergent intubation. Also she is not on any type of daily medication such as lisinopril that indicate this is angioedema. Therefore at this time I do not feel need for laboratory studies or imaging but patient will be given IV Solu-Medrol Benadryl and Pepcid. I do not feel need for epinephrine as there is no true anaphylactic changes noted. The patient was watched in the ER for 1 to 2 hours and had improvement of her lip swelling with no progression to respiratory distress and therefore there is no need for further workup or evaluation and she is otherwise safe for discharge History & Record Review Discussion w/independent historian: Patient Discharge Plan Triage Chief Complaint: Allergic Reaction ED Provider: Tariq Mendiola Dx/Rx/DC Orders Clinical Impression: Acute allergic reaction Instructions: ED Allergic Reaction Local Other Prescriptions: New prednisone 20 mg tablet 40 mg PO DAILY 5 Days Qty: 10 0RF epinephrine 0.3 mg/0.3 mL auto-injector 0.3 mg IM Q4H PRN (Reason: anaphylaxis) Qty: 2 1RF Primary Care Provider: Care Physician,No Primary Referrals: Jabier Coburn MD [Med Staff - Active Staff] - Care Physician,No Primary [Primary Care Provider] - Activity Restrictions/Additional Instructions: Please continue the steroid once a day as prescribed to help resolve the swelling/allergic reaction. You may continue to use Benadryl [id number] up to 3 times a day and or topical creams such as hydrocortisone or topical diphenhydramine. If you have any worsening of symptoms or further concerns please return for repeat evaluation Disposition Disposition: Home, Self Care
[2023-07-12] MEDS: DiphenhydrAMINE 50 MG/ML Syringe IV (23:13)
[2023-07-12] MEDS: MethylPREDNISolone 125 MG/2 ML Vial IV (23:13)
[2023-07-12] MEDS: Famotidine 20mg IV Push Syringe Q24 300 MG IV ×2 (23:27→23:29)
[2023-07-12 23:29] VITALS: BMI 36.7
[2023-07-13 00:37] VITALS: BP 118/66; PULSE 76; RESP 18; TEMP 36.7; O2SAT 97
== END 2023-07-13 00:38 | disposition home or self-care (01) ==
PROVIDERS: Emergency Provider Emergency Medicine; Visit Provider Emergency Medicine
DX: T78.40XA Allergy, unspecified, initial encounter (principal); R22.0 Localized swelling, mass and lump, head
CPT/HCPCS: 96365; 96375; 99283; A4216; J3490

== ENCOUNTER 2024-08-17 12:31 | Emergency (ER) | payer MEDICAID, SELFPAY ==
[2024-08-17 12:32] VITALS: BP 142/75; PULSE 98; RESP 16; TEMP 36.6; O2SAT 99; BMI 36.3
--- NOTE | 2024-08-17 12:51 | US_ITS ---
EXAM: US , Transvaginal CLINICAL INDICATION: ABD CRAMPING, EARLY TECHNIQUE: Real-time transvaginal obstetrical ultrasound of the maternal pelvis and a first trimester with image documentation. Transvaginal imaging was used for better evaluation of the fetus and adnexa. COMPARISON: No relevant prior studies available. FINDINGS: GESTATION: Yolk sac not visualized. CRL not visualized. heart rate not detected at this time. PLACENTA/AMNIOTIC FLUID: Cannot be adequately evaluated due to the early gestational age. UTERUS/CERVIX: Unremarkable. No myometrial mass. The uterus measures 6.0 x 4.5 x 3.2 cm. OVARIES: Right corpus luteum measuring up to 1.3 cm. No mass. The right ovary measures 2.8 x 2.1 x 2.4 cm. The left ovary measures 2.3 x 1.8 x 1.4 cm. FREE FLUID: No free fluid. US/Transvaginal w/Preg US IMPRESSION: No evidence of intrauterine . Beta HCG 753. Findings may be related to early . Continue following serial beta HCG level. Repeat pelvic ultrasound in 10-14 days recommended. Reading [facility]
--- NOTE | 2024-08-17 12:52 | ED.VIS.FEGU ---
HPI HPI - Female History of Present Illness Chief Complaint: Informant: patient Narrative Narrative: Patient is a 34-year-old female G4, P2 with prior deliveries (uterine rupture during her first ) presenting after the center for possible ectopic . Patient states she went there to confirm the and she is having some mild cramping which she attributed to normal . Her last menstrual period was July 12. They could not see anything on ultrasound and send her to the ER for further evaluation. Patient [place] any vaginal bleeding. She denies any abnormal vaginal discharge. Denies any significant nausea or vomiting at this point. Does plan on following with [place] [facility] SUPPORT ANALYST. No other complaints or concerns reported at this time. Chart review states that patient is O+ for her blood type. [facility] Medical History (Updated 08/17/24 @ 15:[address] Radha Hoover, ) Home Medications ?Medication ?Instructions ?Recorded ?Last Taken ?Type epinephrine 0.3 mg/0.3 mL 0.3 mg (0.3 mL) IM Q4H PRN 07/13/23 Unknown Rx injection, auto-injector anaphylaxis #2 ea clobetasol 0.05 % topical ointment 1 applic topical DAILY PRN ECZEMA 08/17/24 Unknown History vit 168-iron 27 mg-folic 1 cap PO DAILY 08/17/24 08/16/24 History acid 800 mcg-omega3 235 mg capsule (One-A-Day -1) Allergy/AdvReac Type Severity Reaction Status Date / Time sulfisoxazole (From Allergy Severe Rash Verified 07/12/23 23:31 Pediazole) erythromycin base Allergy Unknown Verified 07/12/23 22:54 pecan nut Allergy Anaphylaxis Verified 07/12/23 22:54 prednisone Allergy Rash Verified 07/12/23 22:54 Sulfa (Sulfonamide Allergy Unknown Verified 07/12/23 22:54 Antibiotics) tree nut (Tree Nut) Allergy Anaphylaxis Verified 07/12/23 22:54 walnut Allergy Anaphylaxis Verified 07/12/23 22:54 Social History Smoking Status: Never smoker ROS ROS ED Constitutional Constitutional ED: Denies chills or fever(s) Respiratory/Chest Respiratory/Chest: Denies cough Gastrointestinal Gastrointestinal: Reports abdominal pain; Denies vomiting Genitourinary Genitourinary ED: Denies dysuria or hematuria Integumentary Reports rash and other Details: Chronic skin changes associated with atopic dermatitis Neurologic Neurologic: Denies weakness Psychiatric Psychiatric: Denies anxiety or depression Hematologic/Lymphatic Hematologic/Lymphatic: Denies easy bleeding or easy bruising EXAM Physical Exam Const Vital Signs: 08/17/24 12:32 08/17/24 14:37 Temperature 97.9 F 99.2 F H Temperature Source Oral Oral Pulse Rate 98 76 Respiratory Rate 16 18 Blood Pressure 142/75 H 113/74 Blood Pressure Mean 97 87 Pulse Ox 99 99 Oxygen Delivery Method Room Air Room Air Positive well nourished and well developed General Appearance ED: well developed and NAD HEENT Reports moist mucous membranes Neck supple Chest Wall inspection of chest normal Resp normal respiratory effort and clear to auscultation bilaterally Cardio regular rate and regular rhythm GI normal to inspection, nondistended, normoactive bowel sounds, soft to palpation and non-tender Palpation: Negative for guarding or rigid Extremity normal to inspection Neuro oriented x3 Sensorium / Orientation: alert Psych mental status grossly normal Skin Skin Narrative: Excoriations and chronic skin changes consistent with significant atopic dermatitis MDM MDM MDM Narrative Medical decision making narrative: Patient is evaluated for mild abdominal cramping in early . No vaginal bleeding reported. She is an early . Differential includes normal , ectopic and urinary tract infection. Chart review shows the patient is Rh+ and does not require RhoGAM or rechecking Rh status. Abdomen is soft and nontender. Low suspicion for other acute intra-abdominal pathology. CBC is largely normal. Normal hemoglobin. Urinalysis is not with infection. Quant is 753 which is consistent with early . Pelvic ultrasound is obtained which does not show an intrauterine but no obvious abnormalities consistent with ectopic either. Will contact SOFTWARE SUPPORT ANALYST to ensure close outpatient follow-up and trending of quant's. Patient is agreeable this plan of care. Patient discharged home in stable condition. She does have prenatals at home. Discussed with Dr. Ferny Graham. She will see the patient in follow-up. Have the patient call for repeat blood work in 48 hours Lab Data Attestation: I reviewed the patient's lab results. Labs: Laboratory Results - last 24 hr 08/17/24 08/17/24 12:50 13:45 WBC 10.4 RBC 4.76 Hgb 13.0 Hct 39.5 MCV 83.0 MCH 27.3 MCHC 32.9 RDW Std Deviation 39.6 RDW Coeff of [place] 13.0 Plt Count MPV 9.9 Immature Gran % (Auto) 0.400 Neut % (Auto) 66.1 Lymph % (Auto) 21.9 Bucks % (Auto) 6.4 Eos % (Auto) 4.7 Baso % (Auto) 0.5 Absolute Neuts (auto) 6.8 Absolute Lymphs (auto) 2.27 Nucleated RBC % 0 Platelet Estimate ADEQUATE HCG, Quant 753 H Urine Color Yellow Urine Clarity Clear Urine pH 8.0 Ur Specific Marshall 1.015 Urine Protein Negative Urine Glucose (UA) Normal Urine Ketones Negative Urine Occult Blood Negative Urine Nitrite Negative Urine Bilirubin Negative Urine Urobilinogen Normal Ur Leukocyte Esterase Negative Urine RBC 0 SEEN Urine WBC 0 SEEN Ur Squamous Epith Cells 0-5 SEEN Urine Bacteria 0 SEEN Urine Mucus 0 SEEN Radiography Diagnostic Testing: Clinical Impression(s) from Imaging Studies Obstetrics Ultrasound 08/17/24 12:51 IMPRESSION: No evidence of intrauterine . Beta HCG 753. Findings may be related to early . Continue following serial beta HCG level. Repeat pelvic ultrasound in 10-14 days recommended. Reading Location: [facility] Management Discussion w/another healthcare provider: Diet Assistant Discharge Plan Triage Chief Complaint: ED Provider: Radha Hoover Dx/Rx/DC Orders Clinical Impression: Abdominal pain in early Instructions: Miscarriage Threatened Prescriptions: No Action clobetasol 0.05 % ointment 1 applic topical DAILY PRN (Reason: ECZEMA) Patient Comments: PT NOT USING WHILE . One-A-Day -1 27 mg iron- 800 mcg-235 mg capsule 1 cap PO DAILY epinephrine 0.3 mg/0.3 mL auto-injector 0.3 mg IM Q4H PRN (Reason: anaphylaxis) Qty: 2 1RF Referrals: Nina Saul MD [Med Staff - Active Staff] - Care Physician,No Primary [Non-Staff] - Activity Restrictions/Additional Instructions: Your blood work was consistent with early . Too soon to CBD on ultrasound. If you develop worsening pain or bleeding please return to the emergency room. Otherwise please follow-up outpatient with SOFTWARE SUPPORT ANALYST. They may want to repeat your blood work in 48 to 72 hours to make sure it is rising appropriately. Print Language: Tamazight Disposition Disposition: Home, Self Care
[2024-08-17 13:04] LABS: Absolute Lymphocyte Count 2.27 X10^3/uL (0.83-4.51); Absolute Neutrophil Count 6.8 X10^3/uL (2.0-7.7); Basophil# 0.05 X10^3/uL; Basophil% 0.5 % (0-1); Eosinophil# 0.49 X10^3/uL; Eosinophils% 4.7 % (0-5); Hematocrit 39.5 % (37-47); Lymphocyte # 2.27 X10^3/ul (0.83-4.51); Lymphocyte % 21.9 % (19-41); Mean Corp Hgb Conc 32.9 g/dL (32-36); Mean Corpuscular Hgb 27.3 pg (27.0-32.0); Mean Platelet Vol. 9.9 fl (6.2-12.0); Monocyte# 0.66 X10^3/uL; Monocyte% 6.4 % (0-10); NRBC Flagged by Analyzer 0 % (0-5); Neutrophil # 6.84 X10^3/uL (2.7-7.7); Neutrophil % 66.1 % (47-70); POSITIVE COUNT YES; RBC Distribution Width SD 39.6 fl (35.1-43.9); Red Blood Count 4.76 M/mm3 (4.2-5.4); White Blood Count 10.4 K/mm3 (4.4-11.0)
[2024-08-17 13:26] LABS: hCG Titer Quant., Serum 753 mIU/mL (<9 non-preg)
[2024-08-17 13:50] LABS: Bacteria 0 SEEN /hpf (None Seen); Mucous, Urine 0 SEEN /hpf (<or=2+); Red Blood Cells-Urine 0 SEEN /hpf (0-5); White Blood Cells 0 SEEN /hpf (0-5)
[2024-08-17 13:52] LABS: Color, Urine Yellow (Yellow); Glucose, Dipstick Normal (Normal); Ketone-Dipstick Negative (Negative); Leukocyte Esterase-Dipstick Negative /ul (Negative); Nitrite-Dipstick Negative (Negative); Occult Blood-Urine Negative /ul (Negative); Protein-Dipstick Negative (Negative); Specific Gravity, Urine 1.015 (1.002-1.030); Urine Bilirubin Dipstick Negative (Negative); Urine Clarity Clear (Clear); Urine Urobilinogen Normal (Normal)
[2024-08-17 13:58] LABS: Differential Indicated SCAN CRITERIA MET
[2024-08-17 14:00] LABS: Platelet Estimate ADEQUATE (ADEQ)
[2024-08-17 14:00] LABS: Squamous Epithelial Cells - UA 0-5 SEEN /hpf (5-10)
[2024-08-17 14:37] VITALS: BP 113/74; PULSE 76; RESP 18; TEMP 37.3; O2SAT 99
[2024-08-17 16:00] VITALS: BP 126/71; PULSE 87; RESP 16
[2024-08-17 16:05] VITALS: BP 126/71; PULSE 87; RESP 16; TEMP 37.3; O2SAT 99
== END 2024-08-17 16:12 | disposition home or self-care (01) ==
PROVIDERS: Emergency Provider Emergency Medicine; Visit Provider Emergency Medicine
DX: O26.899 Other specified pregnancy related conditions, unspecified trimester (principal); R10.9 Unspecified abdominal pain; Z3A.00 Weeks of gestation of pregnancy not specified; Z87.59 Personal history of other complications of pregnancy, childbirth and the puerperium
CPT/HCPCS: 36415; 76817; 81001; 84702; 85025; 99282; A4216

== ENCOUNTER → 2024-08-17 | Outpatient (CLI) | payer MEDICAID, SELFPAY | END | disposition home or self-care (01) | PROVIDERS: Referring Provider Obstetrics & Gynecology; Visit Provider Obstetrics & Gynecology | DX: Z00.00 Encounter for general adult medical examination without abnormal findings (principal) ==

== ENCOUNTER → 2024-08-19 | Outpatient (CLI) | payer MEDICAID, SELFPAY ==
[2024-08-19 12:49] LABS: hCG Titer Quant., Serum 551 mIU/mL (<9 non-preg)
== END | disposition home or self-care (01) ==
LOC: BWCLAB 11:03
PROVIDERS: Obstetrics & Gynecology; Referring Provider Obstetrics & Gynecology; Visit Provider Obstetrics & Gynecology
DX: O26.899 Other specified pregnancy related conditions, unspecified trimester (principal); R10.9 Unspecified abdominal pain; Z3A.00 Weeks of gestation of pregnancy not specified
CPT/HCPCS: 36415; 84702

== ENCOUNTER 2024-08-20 02:51 | Emergency (ER) | payer MEDICAID, SELFPAY ==
[2024-08-20 02:53] VITALS: BP 124/76; PULSE 74; RESP 18; TEMP 37; O2SAT 100; BMI 35.9
--- NOTE | 2024-08-20 02:57 | US_ITS ---
PROCEDURE: TRANSVAGINAL W/PREG US 08/20/2024 REASON FOR EXAM: CONCERN FOR ECTOPIC TECHNIQUE: Transvaginal pelvic ultrasound FINDINGS: Transvaginal imaging. Exam is limited due to position of the uterus which limits the evaluation of the endometrium. The uterus measures 7.8 x 4.4 x 2.7 cm. Endometrial stripe as imaged 8 mm. No intrauterine is identified at this time. The right ovary measures 2.1 x 1.6 x 1.4 cm and appears within limits. 1.2 cm right corpus luteum cyst. There is evidence of vascular flow to the right ovary. The left ovary measures 2.8 x 2.3 x 2 cm and appears within limits with evidence of vascular flow suggested. Adjacent to the left ovary at the left adnexa is a complex heterogeneous echogenic area of unclear etiology. Ectopic can not be excluded at this time. A definite gestational sac or pole is not identified. No free fluid seen. US/Transvaginal w/Preg US IMPRESSION: Exam is limited due to position of the uterus which limits the evaluation of th e endometrium. No intrauterine is definitely identified at this time. May correlate with quantitative and serial beta HCG. 1.2 cm right corpus luteum cyst. Adjacent to the left ovary at the left adnexa is a complex heterogeneous echoge omar area of unclear etiology. Ectopic can not be excluded at this time. A definite gestational sac or pole is not identified. No free fluid seen. Reading Location: [id number]
[2024-08-20 03:24] LABS: Mucous, Urine 0 SEEN /hpf (<or=2+)
[2024-08-20 03:38] LABS: ALB/GLOB Ratio 1.4 RATIO (0.9-2.4); AST(SGOT) 21 U/L (<=31); Alanine Aminotransfer ALT/SGPT < 5 U/L (<=34); Albumin, Serum 4.4 g/dL (3.5-5.0); Alkaline Phosphatase 93 U/L (35-104); Anion Gap 12 (5-15); BUN 12 mg/dL (4-19); Calcium,Total 9.6 mg/dL (7.6-11.0); Carbon Dioxide 23.4 mmol/L (21.0-32.0); Chloride 101 mmol/L (98-108); Creatinine, Serum 0.73 mg/dL (0.70-1.20); EST Glomerular Filtration Rate 111 (>60); Estimated Creatinine Clearance 113.69 ml/min (50-250); Globulin 3.1 g/dL (2.2-4.2); Glucose 108 mg/dL (70-99); Potassium 3.8 mmol/L (3.3-5.1); Protein, Total 7.5 g/dL (5.9-8.4); Sodium Level 137 mmol/L (133-145); Total Bilirubin 0.34 mg/dL (0.00-1.30)
[2024-08-20 03:39] LABS: hCG Titer Quant., Serum 457 mIU/mL (<9 non-preg)
[2024-08-20 03:51] LABS: Absolute Lymphocyte Count 3.48 X10^3/uL (0.83-4.51); Absolute Neutrophil Count 7.6 X10^3/uL (2.0-7.7); Basophil# 0.06 X10^3/uL; Basophil% 0.5 % (0-1); Eosinophil# 0.71 X10^3/uL; Eosinophils% 5.6 % (0-5); Hematocrit 40.7 % (37-47); Hemoglobin 13.5 g/dL (12.0-15.0); Lymphocyte # 3.48 X10^3/ul (0.83-4.51); Lymphocyte % 27.3 % (19-41); Mean Corp Hgb Conc 33.2 g/dL (32-36); Mean Corpuscular Hgb 27.6 pg (27.0-32.0); Mean Corpuscular Volume 83.2 fL (81-99); Mean Platelet Vol. 9.1 fl (6.2-12.0); Monocyte# 0.89 X10^3/uL; NRBC Flagged by Analyzer 0 % (0-5); Neutrophil # 7.58 X10^3/uL (2.7-7.7); Neutrophil % 59.4 % (47-70); Platelet Count 433 K/mm3 (150-450); RBC Distribution Width CV 13.1 % (11.6-14.6); RBC Distribution Width SD 39.7 fl (35.1-43.9); Red Blood Count 4.89 M/mm3 (4.2-5.4); White Blood Count 12.8 K/mm3 (4.4-11.0)
[2024-08-20 04:29] LABS: Color, Urine Straw (Yellow); Glucose, Dipstick Normal (Normal); Ketone-Dipstick Negative (Negative); Leukocyte Esterase-Dipstick 25 /ul (Negative); Nitrite-Dipstick Negative (Negative); Occult Blood-Urine 250 /ul (Negative); Protein-Dipstick 30 mg/dl (Negative); Urine Bilirubin Dipstick Negative (Negative); Urine Clarity Clear (Clear); Urine Urobilinogen Normal (Normal)
[2024-08-20 04:52] VITALS: BP 111/66; PULSE 90; RESP 18; O2SAT 100
[2024-08-20 05:02] LABS: Bacteria 2+ /hpf (None Seen); Red Blood Cells-Urine 0-5 SEEN /hpf (0-5); Squamous Epithelial Cells - UA 0-5 SEEN /hpf (5-10); White Blood Cells 0-5 SEEN /hpf (0-5)
[2024-08-20 06:00] VITALS: BP 108/63; PULSE 98; RESP 16; O2SAT 100
--- NOTE | 2024-08-20 06:05 | OB.TRI.HP_ITS ---
HPI - General HPI Narrative JAYLIN LAYTON, is a 34 F who presents with ectopic left side seen and evluated counseled regarding options patient wants conservative management. it is small and appears stable not ruptured, quant under 500 hemodynamically stable no vaginal bleeding. no fevers PFSH PFSH Medical History (Updated 08/20/24 @ 06:[address] Nina Saul MD) Home Medications ?Medication ?Instructions ?Recorded ?Last Taken ?Type epinephrine 0.3 mg/0.3 mL 0.3 mg (0.3 mL) IM Q4H PRN 0 07/13/23 Unknown Rx injection, auto-injector anaphylaxis #2 ea clobetasol 0.05 % topical ointment 1 applic topical DA HUMBERTO PRN ECZEMA 08/17/24 Unknown History Held on 08/20/24. Instructions: PT NOT USING WHILE vit 168-iron 27 mg-folic 1 cap PO DAILY 08/1708/16/24 History acid 800 mcg-omega3 235 mg capsule (One-A-Day -1) Allergy/AdvReac Type Severity Reaction Status Date / Time sulfisoxazole (From Allergy Severe Rash Verified 08/20/24 02:53 Pediazole) erythromycin base Allergy Unknown Verified 08/20/24 02:53 pecan nut Allergy Anaphylaxis Verified 08/20/24 02:53 prednisone Allergy Rash Verified 08/20/24 02:53 Sulfa (Sulfonamide Allergy Unknown Verified 08/20/24 02:53 Antibiotics) tree nut (Tree Nut) Allergy Anaphylaxis Verified 08/20/24 02:53 walnut Allergy Anaphylaxis Verified 08/20/24 02:53 Family History no significant family his Surgical History (Updated 08/20/24 @ 02:54 by Nick Hermosillo) Hx of section Social History Smoking Status: Never smoker History 4 Elective abortions Hx Para 2 Spontaneous abortions 1 Hx # Term Pregnancies Ectopic pregnancies Hx # Pregnancies Multiple births # of living children ROS Constitutional Constitutional: Reports systems reviewed and no addt'l complaints, except as documented Gastrointestinal Gastrointestinal: Reports as per HPI Physical Exam Const alert, oriented x3 and no apparent distress HEENT Head and Scalp: normocephalic and atraumatic Neck full ROM and no lymphadenopathy Chest inspection of chest normal Resp normal respiratory effort Assessment & Plan (1) Ectopic : COMMENT: left side. given methotrexate 08/20 will return for repeat HCG friday and friday, fu in office friday. PLAN: Plan plan methotrexate therapy after providing options of methotrexate versus surgery, reviewed precautions and needs close follow up, repeat HCG friday and friday, fu in office friday. Charges/Coding Multi Select Codes Visit Charges Office Visit/Consults: 50137 OV L3 Est 20min
--- NOTE | 2024-08-20 06:17 | EDS_ITS ---
HPI HPI - Female History of Present Illness Chief Complaint: Female C/O Narrative Narrative: Patient is a 34-year-old female with no known significant past medical history presented to the emergency department after discussing with Dr. Saul for concern for possible ectopic . According to the patient and she was seen recently and was sent home and had worsening pain and therefore she called her OB and they advised her to come here for the valuation management. Patient states that she has had worsening left lower quadrant abdominal pain. PFSH PFSH Medical History Home Medications ?Medication ?Instructions ?Recorded ?Last Taken ?Type epinephrine 0.3 mg/0.3 mL 0.3 mg (0.3 mL) IM Q4H PRN 0 07/13/23 Unknown Rx injection, auto-injector anaphylaxis #2 ea clobetasol 0.05 % topical ointment 1 applic topical DA HUMBERTO PRN ECZEMA 08/17/24 Unknown History Held on 08/20/24. Instructions: PT NOT USING WHILE vit 168-iron 27 mg-folic 1 cap PO DAILY 08/1708/16/24 History acid 800 mcg-omega3 235 mg capsule (One-A-Day -1) Allergy/AdvReac Type Severity Reaction Status Date / Time sulfisoxazole (From Allergy Severe Rash Verified 08/20/24 02:53 Pediazole) erythromycin base Allergy Unknown Verified 08/20/24 02:53 pecan nut Allergy Anaphylaxis Verified 08/20/24 02:53 prednisone Allergy Rash Verified 08/20/24 02:53 Sulfa (Sulfonamide Allergy Unknown Verified 08/20/24 02:53 Antibiotics) tree nut (Tree Nut) Allergy Anaphylaxis Verified 08/20/24 02:53 walnut Allergy Anaphylaxis Verified 08/20/24 02:53 Family History no significant family his Surgical History Hx of section Social History Smoking Status: Never smoker ROS ROS ED ROS Narrative Constitutional: Denies fevers, chills, headaches, lightness, dizziness Eyes: Denies change in vision double vision blurry vision Cardiovascular: Denies chest pain Respiratory: Denies shortness of breath Abdomen: Complains of abdominal pain as noted above denies nausea vomit diarrhea : Denies urinary symptoms Neurological: Denies numbness, weakness, tingling Musculoskeletal: Denies back pain Skin: Denies rashes or lesions EXAM Physical Exam Narrative Exam Narrative: General: Patient lying in bed rest comfortably did not appear to be in acute distress Head: Atraumatic, normocephalic Eyes: PERRL bilateral, EOMI bilateral, no conjunctival injection noted Neck: Soft, supple, trachea midline Cardiovascular: Regular rhythm no murmurs gallops rubs noted Abdomen: Soft, nondistended, tenderness to palpation in the left lower quadrant no rebound or guarding on exam Extremities: +5/5 strength noted in the bilateral upper and lower extremities Neurological: Patient follow commands knew that she was at [facility] years 2024 Skin: Warm, dry, intact no rashes or lesions noted Const Vital Signs: 08/20/24 02:53 08/20/24 04:52 Temperature 98.6 F Temperature Source Oral Pulse Rate 74 90 Respiratory Rate 18 18 Blood Pressure 124/76 H 111/66 Blood Pressure Mean 92 81 Pulse Ox 100 100 Oxygen Delivery Method Room Air Room Air MDM MDM MDM Narrative Medical decision making narrative: Patient is a 34-year-old female who presented to the emergency department concern for ectopic . On the differential diagnose includes but not limited to ectopic , intrauterine , UTI, ruptured cyst. Once workup is obtained reviewed she will be reevaluated. Patient's CLINICAL HAEMATOLOGIST Dr. Saul called me and updated me on this patient and states that she will need an ultrasound and to call her back once this is done. Patient's CBC reviewed showed a white count of 12,000, hemoglobin was noted be 13.5, platelet count of 433. Patient sodium 137, potassium normal 3.8, creatinine was normal at 0.73. Patient's AST and ALT are 21 and a less than 5 respectively, total bilirubin normal at 0.34. Patient's hCG quant was noted to be 457 and yesterday 08/19/2024 was noted to be 551. Patient's ultrasound reviewed and showed no intrauterine identified at this time exam was limited due to the position of the uterus which limits the evaluation of the endometrium. Adjacent to the left ovary at the left adnexa is a complex he terogeneous echogenic area of unclear etiology ectopic cannot be excluded at this time definite gestational sac or pole was not identified no free fluid noted. Called Dr. Saul back and she states that she will come in and evaluate the patient and discuss with her the plan. After discussion she ultimately decided to order methotrexate. Patient will be administered methotrexate by myself emergency department. She was advised that she need to return for repeat hCG Friday and Friday and follow-up in the office on Friday. She is agreeable this plan all question and concerns answered she was discharged home in stable condition. Lab Data Labs: Laboratory Results - last 24 hr 08/20/24 08/20/24 03:09 03:19 WBC 12.8 H RBC 4.89 Hgb 13.5 Hct 40.7 MCV 83.2 MCH 27.6 MCHC 33.2 RDW Std Deviation 39.7 RDW Coeff of [place] 13.1 Plt Count 433 MPV 9.1 Immature Gran % (Auto) 0.200 Neut % (Auto) 59.4 Lymph % (Auto) 27.3 [place] % (Auto) 7.0 Eos % (Auto) 5.6 H Baso % (Auto) 0.5 Absolute Neuts (auto) 7.6 Absolute Lymphs (auto) 3.48 Nucleated RBC % 0 Sodium 137 Potassium 3.8 Chloride 101 Carbon Dioxide 23.4 Anion Gap 12 BUN 12 Creatinine 0.73 Estim Creat Clear Calc 113.69 Est GFR (MDRD) Non-Af 111 BUN/Creatinine Ratio 16.0 Glucose 108 H Calcium 9.6 Total Bilirubin 0.34 AST 21 ALT < 5 Alkaline Phosphatase 93 Total Protein 7.5 Albumin 4.4 Globulin 3.1 Albumin/Globulin Ratio 1.4 HCG, Quant 457 H Urine Color Straw Urine Clarity Clear Urine pH 5.0 Ur Specific [place] 1.020 Urine Protein 30 H Urine Glucose (UA) Normal Urine Ketones Negative Urine Occult Blood 250 H Urine Nitrite Negative Urine Bilirubin Negative Urine Urobilinogen Normal Ur Leukocyte Esterase 25 H Urine RBC 0-5 SEEN Urine WBC 0-5 SEEN Ur Squamous Epith Cells 0-5 SEEN Urine Bacteria 2+ Urine Mucus 0 SEEN Radiography Diagnostic Testing: Clinical Impression(s) from Imaging Studies Obstetrics Ultrasound 08/20/24 02:57 IMPRESSION: Exam is limited due to position of the uterus which limits the evaluation of the endometrium. No intrauterine is definitely identified at this time. May correlate with quantitative and serial beta HCG. 1.2 cm right corpus luteum cyst. Adjacent to the left ovary at the left adnexa is a complex heterogeneous echogenic area of unclear etiology. Ectopic can not be excluded at this time. A definite gestational sac or pole is not identified. No free fluid seen. Reading Location: [facility] Discharge Plan Triage Chief Complaint: Female C/O ED Provider: Kingsley Chaidez Dx/Rx/DC Orders Clinical Impression: Abdominal pain, Ectopic Instructions: Ectopic , Methotrexate Ectopic , ED Methotrexate for Ectopic ... Prescriptions: No Action clobetasol 0.05 % ointment 1 applic topical DAILY PRN (Reason: ECZEMA) Patient Comments: PT NOT USING WHILE . One-A-Day -1 27 mg iron- 800 mcg-235 mg capsule 1 cap PO DAILY epinephrine 0.3 mg/0.3 mL auto-injector 0.3 mg IM Q4H PRN (Reason: anaphylaxis) Qty: 2 1RF Other Ambulatory Orders: hCG Titer Quant., Serum (Routine) Timeframe: 20240823 Facility: [facility] - Location: Laboratory Ordered By: Dr. Nina Saul Primary Care Provider: Care Physician,No Primary Referrals: Care Physician,No Primary [Primary Care Provider] - Activity Restrictions/Additional Instructions: no sex until hcg undetectable tylenol 1000mg every 6 hours repeat HCG friday and friday call office for appointment friday with Dr Saul Print Language: Peruvian Disposition Disposition: Home, Self Care
[2024-08-20] MEDS: METHOTREXATE IM (06:49)
[2024-08-20 07:05] VITALS: BP 108/63; PULSE 98; RESP 16; TEMP 36.3; O2SAT 100
== END 2024-08-20 07:08 | disposition home or self-care (01) ==
PROVIDERS: Emergency Provider Emergency Medicine; Visit Provider Emergency Medicine
DX: O00.90 Unspecified ectopic pregnancy without intrauterine pregnancy (principal); O26.899 Other specified pregnancy related conditions, unspecified trimester; R10.32 Left lower quadrant pain; Z3A.00 Weeks of gestation of pregnancy not specified
CPT/HCPCS: 76817; 80053; 81001; 84702; 85025; 96372; 99282; A4216; J9260

== ENCOUNTER 2024-08-22 03:40 | Emergency (ER) | payer MEDICAID, SELFPAY ==
[2024-08-22 03:42] VITALS: BP 138/79; PULSE 96; RESP 14; TEMP 36.4; O2SAT 97; BMI 35.8
[2024-08-22 03:48] VITALS: BP 116/78; PULSE 90; RESP 14; O2SAT 100
--- NOTE | 2024-08-22 04:19 | EDS_ITS ---
HPI History of Present Illness Chief Complaint: Nausea/Vomiting Detail of Chief Complaint: Nausea and vomiting for several days Informant: patient Onset/Context/Timing Onset: Days Context: Sudden Onset Timing: Intermittent Quality: Continuous nausea with vomiting up to 6-8 times a day. Location: GI Current Severity: Severe Maximum Severity: Severe Worsened by: Nothing Relieved by: Nothing Associated Symptoms Associated Symptoms: Epigastric discomfort Narrative Narrative: Patient is a 34-year-old female. She presents with nausea and vomiting. This started several days ago. She states she has been vomiting every hour since yesterday. She denies hematemesis or coffee-ground emesis. She does endorse thirst dry mouth. She has intermittent lightheadedness with standing. She states she has had increased urine output and not decreased. There is a paternal family history of diabetes. Patient denies fever, chills night sweats. Patient denies upper respiratory tract infectious symptoms. Patient denies cardiac symptoms. Patient complains of pain predominantly in the epigastric area. She denies intolerance to greasy or fried foods. There is no family history of cholelithiasis. She denies dysuria, frequency, urgency or hematuria. She denies histoRy of gastroparesis. She denies history of diabetes. She states she has not used any marijuana product in 2 to 3 weeks. Patient was seen on August 20 for left-sided ectopic . Dr. Nina Saul's note as well as Dr. Chaidez's note was reviewed. Prior similar symptoms: Yes Recent Illness/Hospitalization: No PFSH PFS Medical History Home Medications ?Medication ?Instructions ?Recorded ?Last Taken ?Type epinephrine 0.3 mg/0.3 mL 0.3 mg (0.3 mL) IM Q4H PRN 0 07/13/23 Unknown Rx injection, auto-injector anaphylaxis #2 ea clobetasol 0.05 % topical ointment 1 applic topical DA HUMBERTO PRN ECZEMA 08/17/24 Unknown History Held on 08/20/24. Instructions: PT NOT USING WHILE vit 168-iron 27 mg-folic 1 cap PO DAILY 08/1708/16/24 History acid 800 mcg-omega3 235 mg capsule (One-A-Day -1) metoclopramide HCl 5 mg tablet 5 mg PO .AC and at bedt sheldon #20 tabs 08/22/24 Unknown Rx (Reglan) Allergy/AdvReac Type Severity Reaction Status Date / Time sulfisoxazole (From Allergy Severe Rash Verified 08/22/24 03:42 Pediazole) erythromycin base Allergy Unknown Verified 08/22/24 03:42 pecan nut Allergy Anaphylaxis Verified 08/22/24 03:42 prednisone Allergy Rash Verified 08/22/24 03:42 Sulfa (Sulfonamide Allergy Unknown Verified 08/22/24 03:42 Antibiotics) tree nut (Tree Nut) Allergy Anaphylaxis Verified 08/22/24 03:42 walnut Allergy Anaphylaxis Verified 08/22/24 03:42 Surgical History Hx of section Social History Smoking Status: Never smoker ROS ROS ED Constitutional Constitutional ED: Denies chills, fever(s), subjective, sweats or weight loss Eyes Eyes: Denies blurry vision or change in vision ENT ENT ED: Denies ear pain, rhinorrhea or sore throat Cardiovascular Cardiovascular: Denies chest pain or palpitations Respiratory/Chest Respiratory/Chest: Denies cough, dyspnea or dyspnea on exertion Gastrointestinal Gastrointestinal: Reports abdominal pain, nausea and vomiting; Denies constipation, diarrhea or melena Genitourinary Genitourinary ED: Denies dysuria, hematuria or urinary frequency Musculoskeletal Musculoskeletal: Denies arthralgias, back pain or myalgias Integumentary Denies rash Neurologic Neurologic: Reports weakness; Denies paresthesias Endocrine Endocrinology: Denies cold intolerance or heat intolerance Hematologic/Lymphatic Hematologic/Lymphatic: Reports systems reviewed and no addt'l complaints, except as documented EXAM Physical Exam Const Vital Signs: 08/22/24 03:42 08/22/24 03:48 08/22/24 04:40 Temperature 97.6 F L Temperature Source Oral Pulse Rate 96 90 Pulse Rate [Lying] 107 H Pulse Rate [Sitting (for 1 minute prior to obtaining)] 112 H Pulse Rate [Standing (for 1 minute prior to obtaining)] 114 H Respiratory Rate 14 14 Blood Pressure 138/79 H 116/78 Blood Pressure [Lying] 110/68 Blood Pressure [Sitting (for 1 minute prior to obtaining)] 120/85 H Blood Pressure [Standing (for 1 minute prior to obtaining)] 115/61 Blood Pressure Mean 98 90 Blood Pressure Mean [Lying] 82 Blood Pressure Mean [Sitting (for 1 minute prior to obtaining)] 96 Blood Pressure Mean [Standing (for 1 minute prior to obtaining)] 79 Pulse Ox 97 100 Oxygen Delivery Method Room Air Room Air 08/22/24 05:41 Temperature 98.5 F Temperature Source Oral Pulse Rate 99 Pulse Rate [Lying] Pulse Rate [Sitting (for 1 minute prior to obtaining)] Pulse Rate [Standing (for 1 minute prior to obtaining)] Respiratory Rate 14 Blood Pressure 107/61 Blood Pressure [Lying] Blood Pressure [Sitting (for 1 minute prior to obtaining)] Blood Pressure [Standing (for 1 minute prior to obtaining)] Blood Pressure Mean 76 Blood Pressure Mean [Lying] Blood Pressure Mean [Sitting (for 1 minute prior to obtaining)] Blood Pressure Mean [Standing (for 1 minute prior to obtaining)] Pulse Ox 99 Oxygen Delivery Method Room Air Initial blood pressure is elevated. Vital signs otherwise unremarkable. Positive well nourished and well developed Constitutional Narrative: BMI is 35.8. General Appearance ED: well developed HEENT Reports dry mucous membranes HEENT Narrative: Head is atraumatic normocephalic. Ears normal. Nares patent. Nares is pierced. Posterior pharynx is normal. Mouth ED: Yes dry mucous membranes Mouth: dry mucous membranes Eyes PERRL and EOMs intact bilaterally General Eye ED: Negative for pale conjunctiva or scleral icterus Neck no lymphadenopathy, supple and no JVD Resp normal respiratory effort and clear to auscultation bilaterally Cardio regular rate, regular rhythm, S1 normal heart sound, S2 normal heart sound and no murmurs GI normal to inspection, nondistended, normoactive bowel sounds, non-tender, non- distended and no masses; Negative for hepatosplenomegaly Back/Spine no CVA tenderness Extremity normal to inspection General Extremety ED: Negative for edema or tenderness General Extremity: Negative for edema Neuro oriented x3 and CN's II-XII intact bilaterally Sensorium / Orientation: alert Psych Mood & Affect: depressed Skin Skin Narrative: Patient has rash consistent with eczema predominantly hands but also neck and face. MDM MDM MDM Narrative Medical decision making narrative: This may represent gastroparesis, cannabis hyperemesis syndrome, nausea and vomiting due to medication for ectopic , viral illness. Since pain is in the epigastric area and not lower quadrants and no pain referred to the shoulders doubt this is due to a ruptured ectopic. Dr. Nina Saul documented that the ectopic was small and she is appropriate for conservative therapy which she chose. Since clinically she appears dehydrated BMP was obtained to assess CO2 anion gap, electrolytes as well as renal function. I was informed by nurse that patient would not allow nursing to attempt an IV since they were unsuccessful. Will change Zofran to ODT. Patient was reassessed at 0518. She is eating ice chips and water with a spoon. She still is nauseous. She has not vomited since she arrived. Will treat with IM Reglan. History & Record Review Additional record(s) reviewed:: Prior outpatient record, Prior ED visit and Prio r labs Treatment and Re-Evaluation :: Patient did have an episode of emesis when she received the Zofran ODT tablet. Patient was treated with IM Reglan. She has had no vomiting and passed p.o. challenge. Plan is discharged home with prescription for Reglan. Discharge Plan Triage Chief Complaint: Nausea/Vomiting ED Provider: Farooq Gaston Dx/Rx/DC Orders Clinical Impression: Nausea & vomiting, Acute dehydration, Sinus tachycardia seen on awake overnight monitor Instructions: ED Vomiting (Adult) Prescriptions: New metoclopramide HCl [Reglan] 5 mg tablet 5 mg PO .AC and at bedtime Qty: 20 0RF No Action clobetasol 0.05 % ointment 1 applic topical DAILY PRN (Reason: ECZEMA) Patient Comments: PT NOT USING WHILE . One-A-Day -1 27 mg iron- 800 mcg-235 mg capsule 1 cap PO DAILY epinephrine 0.3 mg/0.3 mL auto-injector 0.3 mg IM Q4H PRN (Reason: anaphylaxis) Qty: 2 1RF Primary Care Provider: Care Physician,No Primary Referrals: Care Physician,No Primary [Primary Care Provider] - Activity Restrictions/Additional Instructions: Follow-up with your provider. The name of your provider is located on your insurance card issued to you by [facility]. Print Language: Solomon Islander Disposition Disposition: Home, Self Care
[2024-08-22] MEDS: Ondansetron ODT 4 MG Tablet PO (04:36)
[2024-08-22 04:40] VITALS: BP 110/68; BP 115/61; BP 120/85; PULSE 107; PULSE 112; PULSE 114
[2024-08-22] MEDS: Metoclopramide 10 MG/2 ML Vial 5 MG IM (05:25)
[2024-08-22 05:41] VITALS: BP 107/61; PULSE 99; RESP 14; TEMP 36.9; O2SAT 99
[2024-08-22 06:57] VITALS: BP 112/78; PULSE 65; RESP 18; TEMP 36.8; O2SAT 99
== END 2024-08-22 06:58 | disposition home or self-care (01) ==
PROVIDERS: Emergency Provider Emergency Medicine; Visit Provider Emergency Medicine
DX: R11.2 Nausea with vomiting, unspecified (principal); R10.13 Epigastric pain; E86.0 Dehydration; R00.0 Tachycardia, unspecified
CPT/HCPCS: 96372; 99284; A4216; J2405

== ENCOUNTER → 2024-08-24 | Outpatient (CLI) | payer MEDICAID, SELFPAY ==
[2024-08-24 10:41] LABS: hCG Titer Quant., Serum 408 mIU/mL (<9 non-preg)
== END | disposition home or self-care (01) ==
LOC: BWCLAB 08:09
PROVIDERS: Visit Provider Obstetrics & Gynecology
DX: O00.90 Unspecified ectopic pregnancy without intrauterine pregnancy (principal)
CPT/HCPCS: 36415; 84702

== ENCOUNTER → 2024-08-27 | Outpatient (CLI) | payer MEDICAID, SELFPAY ==
[2024-08-27 13:21] LABS: hCG Titer Quant., Serum 158 mIU/mL (<9 non-preg)
== END | disposition home or self-care (01) ==
LOC: LAB 12:20
PROVIDERS: PCP Internal Medicine; Referring Provider Obstetrics & Gynecology; Visit Provider Obstetrics & Gynecology
DX: O00.90 Unspecified ectopic pregnancy without intrauterine pregnancy (principal)
CPT/HCPCS: 36415; 84702

== ENCOUNTER → 2024-09-01 | Outpatient (CLI) | payer MEDICAID, SELFPAY ==
[2024-09-01 13:39] LABS: Absolute Lymphocyte Count 2.13 X10^3/uL (0.83-4.51); Absolute Neutrophil Count 4.4 X10^3/uL (2.0-7.7); Basophil# 0.02 X10^3/uL; Basophil% 0.3 % (0-1); Eosinophil# 0.62 X10^3/uL; Hemoglobin 12.9 g/dL (12.0-15.0); Lymphocyte # 2.13 X10^3/ul (0.83-4.51); Lymphocyte % 27.4 % (19-41); Mean Corp Hgb Conc 33.1 g/dL (32-36); Mean Corpuscular Hgb 27.4 pg (27.0-32.0); Mean Corpuscular Volume 82.8 fL (81-99); Mean Platelet Vol. 9.1 fl (6.2-12.0); Monocyte# 0.54 X10^3/uL; NRBC Flagged by Analyzer 0 % (0-5); Neutrophil # 4.41 X10^3/uL (2.7-7.7); Neutrophil % 56.8 % (47-70); Platelet Count 397 K/mm3 (150-450); RBC Distribution Width CV 13.2 % (11.6-14.6); RBC Distribution Width SD 39.6 fl (35.1-43.9); Red Blood Count 4.71 M/mm3 (4.2-5.4); White Blood Count 7.8 K/mm3 (4.4-11.0)
[2024-09-01 14:23] LABS: ALB/GLOB Ratio 1.4 RATIO (0.9-2.4); AST(SGOT) 33 U/L (<=31); Alanine Aminotransfer ALT/SGPT < 5 U/L (<=34); Albumin, Serum 4.3 g/dL (3.5-5.0); Alkaline Phosphatase 81 U/L (35-104); Anion Gap 13 (5-15); BUN 8 mg/dL (4-19); BUN/Creat Ratio 8.9 RATIO (10-20); Calcium,Total 9.5 mg/dL (7.6-11.0); Carbon Dioxide 23.1 mmol/L (21.0-32.0); Chloride 103 mmol/L (98-108); Creatinine, Serum 0.85 mg/dL (0.70-1.20); EST Glomerular Filtration Rate 93 (>60); Globulin 3.1 g/dL (2.2-4.2); Glucose 105 mg/dL (70-99); Potassium 3.5 mmol/L (3.3-5.1); Protein, Total 7.4 g/dL (5.9-8.4); Sodium Level 139 mmol/L (133-145); Total Bilirubin 0.27 mg/dL (0.00-1.30)
[2024-09-01 14:30] LABS: hCG Titer Quant., Serum 42 mIU/mL (<9 non-preg)
== END | disposition home or self-care (01) ==
LOC: LAB 13:11
PROVIDERS: Registered Nurse; PCP Internal Medicine; Referring Provider Obstetrics & Gynecology; Visit Provider Obstetrics & Gynecology
DX: O00.90 Unspecified ectopic pregnancy without intrauterine pregnancy (principal)
CPT/HCPCS: 36415; 80053; 84702; 85025

== ENCOUNTER → 2024-09-07 | Outpatient (CLI) | payer MEDICAID, SELFPAY ==
[2024-09-07 16:33] LABS: hCG Titer Quant., Serum 35 mIU/mL (<9 non-preg)
== END | disposition home or self-care (01) ==
LOC: LAB 14:27
PROVIDERS: PCP Internal Medicine; Referring Provider Obstetrics & Gynecology; Visit Provider Obstetrics & Gynecology
DX: O00.90 Unspecified ectopic pregnancy without intrauterine pregnancy (principal)
CPT/HCPCS: 36415; 84702

== ENCOUNTER 2024-09-08 16:43 | Emergency (ER) | payer MEDICAID, SELFPAY ==
[2024-09-08 16:44] VITALS: BP 145/94; PULSE 121; RESP 18; TEMP 36.1; O2SAT 96; BMI 36.0
--- NOTE | 2024-09-08 17:40 | ED.VIS.CHEST ---
HPI History of Present Illness Chief Complaint: Palpitations Informant: patient Onset/Context/Timing Onset: Weeks (3) Activity at onset: gradual Timing: Waxes and wanes Quality: Positive for - (Racing) Location: Substernal and Left Parasternal Worsened By: Nothing Relieved By: Nothing Associated Symptoms: Positive for Acid Reflux and Palpitations; Negative for Nausea, Vomiting, Diaphoresis, Dyspnea, Cough, Fever or Lightheadedness Narrative Narrative: Patient presents with palpitations that have been waxing and waning over the past 3 weeks. Patient states they are constant but worse at times. Patient states she feels her heart racing. Patient states it is over the substernal and left parasternal area. Patient states nothing makes it worse and nothing makes it better. Patient admits to some occasional heartburn. Patient states that she was treated with methotrexate for an ectopic prior to the feelings of palpitations. Patient denies any shortness of breath. Patient denies any recent surgery or recent travel. Patient denies any history of DVT or PE. Patient denies any history of cancer. CVD Risk Factors: Positive for Family History 1' </=55; Negative for Hypertension, Diabetes, Hypercholesterolemia or Smoking PE Risk Factors: Negative for Recent Travel/Surgery, Recent Immobilization, Prior DVT or PE, Cancer or OCP + Smoking + >/=35 [facility] Medical History (Updated 09/08/24 @ 21:[address] Tariq Brower, DO) Eczema Home Medications ?Medication ?Instructions ?Recorded ?Last Taken ?Type epinephrine 0.3 mg/0.3 mL 0.3 mg (0.3 mL) IM Q4H PRN 07/13/23 Unknown Rx injection, auto-injector anaphylaxis #2 ea clobetasol 0.05 % topical ointment 1 applic topical DAILY PRN ECZEMA 08/17/24 Unknown History Held on 08/20/24. Instructions: PT NOT USING WHILE metoclopramide HCl 5 mg tablet 5 mg PO .AC and at bedtime #20 tabs 08/22/24 Unknown Rx (Reglan) Allergy/AdvReac Type Severity Reaction Status Date / Time sulfisoxazole (From Allergy Severe Rash Verified 09/08/24 16:47 Pediazole) erythromycin base Allergy Unknown Verified 09/08/24 16:47 pecan nut Allergy Anaphylaxis Verified 09/08/24 16:47 prednisone Allergy Rash Verified 09/08/24 16:47 Sulfa (Sulfonamide Allergy Unknown Verified 09/08/24 16:47 Antibiotics) tree nut (Tree Nut) Allergy Anaphylaxis Verified 09/08/24 16:47 walnut Allergy Anaphylaxis Verified 09/08/24 16:47 Surgical History Hx of section Social History (Updated 09/08/24 @ 18:[address] Tariq Brower DO) Smoking Status: Never smoker substance use type: marijuana ROS ROS ED Constitutional Constitutional ED: Denies chills or fever(s) Eyes Eyes: Denies blurry vision or change in vision ENT ENT ED: Denies rhinorrhea or sore throat Cardiovascular Cardiovascular: Reports palpitations and racing heartbeat; Denies chest pain Respiratory/Chest Respiratory/Chest: Denies cough or dyspnea Gastrointestinal Gastrointestinal: Denies nausea or vomiting Genitourinary Genitourinary ED: Denies dysuria or hematuria Musculoskeletal Musculoskeletal: Denies back pain or neck pain Integumentary Denies abscess or rash Neurologic Neurologic: Reports headache(s); Denies weakness Allergic/Immunologic Allergic/Immunologic ED: Denies mouth swelling or urticaria EXAM Physical Exam Const Vital Signs: 09/08/24 16:44 09/08/24 17:49 09/08/24 18:44 Temperature 97 F L Temperature Source Temporal Pulse Rate 121 H 89 Respiratory Rate 18 14 Respiratory Effort Normal Non-Labored Blood Pressure 145/94 H 124/72 H Blood Pressure Mean 111 89 Pulse Ox 96 98 Oxygen Delivery Method 09/08/24 20:00 Temperature Temperature Source Pulse Rate 98 Respiratory Rate 17 Respiratory Effort Blood Pressure 121/78 H Blood Pressure Mean 92 Pulse Ox 100 Oxygen Delivery Method Room Air Positive well nourished and well developed General Appearance ED: well developed and NAD HEENT Reports moist mucous membranes Neck supple and no JVD Resp normal respiratory effort and clear to auscultation bilaterally Cardio regular rhythm Rate: tachycardic GI soft to palpation, non-tender and non-distended Neuro oriented x3, CN's II-XII intact bilaterally and no sensory deficits noted Sensorium / Orientation: awake and alert Motor Exam: strength 5/5 throughout Psych mental status grossly normal MDM MDM MDM Narrative Medical decision making narrative: Differential diagnosis includes cardiac dysrhythmia, cardiac ischemia, pulmonary embolism, electrolyte abnormality, dehydration, and anxiety. EKG will be obtained to assess for cardiac dysrhythmia and cardiac ischemia. Chest x-ray will be obtained to assess for pneumonia or bronchitis. CBC will be obtained to assess for leukocytosis and anemia. Basic metabolic profile will be obtained to assess for electrolyte abnormality renal function. D-dimer will be obtained to assess for pulmonary embolism. High sensitive troponin will be obtained to assess for cardiac ischemia. 2-hour repeat high-sensitivity troponin will be obtained to assess for ongoing cardiac ischemia. Urinalysis will be obtained to assess for urinary tract infection and hematuria. Serum hCG will be obtained to assess for . History & Record Review Additional record(s) reviewed:: Prior outpatient record, Prior ED visit and Prior labs Lab Data Attestation: I reviewed the patient's lab results. Lab results narrative: CBC was reviewed and was within normal notes. D-dimer was reviewed and was normal at 0.35. Basic metabolic profile was reviewed and was essentially within normal limits. Initial high-sensitivity troponin was reviewed and was normal at 10. 2-hour repeat high-sensitivity troponin was reviewed and was less than 6. Serum hCG was reviewed and was positive. Quantitative hCG was reviewed and was 24. This is decreasing from previous results. Urinalysis was reviewed. There is no evidence of urinary tract infection or hematuria. Labs: Laboratory Results - last 24 hr 09/08/24 09/08/24 09/08/24 17:15 18:47 19:25 WBC 9.0 RBC 4.63 Hgb 12.8 Hct 39.2 MCV 84.7 MCH 27.6 MCHC 32.7 RDW Std Deviation 42.7 RDW Coeff of [place] 14.1 Plt Count 491 H MPV 9.3 Immature Gran % (Auto) 0.400 Neut % (Auto) 61.9 Lymph % (Auto) 23.3 [place] % (Auto) 9.0 Eos % (Auto) 5.0 Baso % (Auto) 0.4 Absolute Neuts (auto) 5.6 Absolute Lymphs (auto) 2.10 Nucleated RBC % 0 D-Dimer Quant (PE/DVT) 0.35 Sodium 140 Potassium 3.5 Chloride 103 Carbon Dioxide 21.4 Anion Gap 16 H BUN 7 Creatinine 0.97 Estim Creat Clear Calc 85.69 Est GFR (MDRD) Non-Af 79 BUN/Creatinine Ratio 7.6 L Glucose 104 H Calcium 9.8 Troponin T High Sens 10 Troponin T Hi Sens 2 Hr < 6 HCG, Quant Serum , Qual POSITIVE Urine Color Yellow Urine Clarity Clear Urine pH 6.5 Ur Specific [place] 1.015 Urine Protein 30 H Urine Glucose (UA) Normal Urine Ketones Negative Urine Occult Blood 250 H Urine Nitrite Negative Urine Bilirubin Negative Urine Urobilinogen Normal Ur Leukocyte Esterase 25 H Urine RBC 0-5 SEEN Urine WBC 0-5 SEEN Ur Squamous Epith Cells 0-5 SEEN Urine Bacteria 0 SEEN Urine Mucus 0 SEEN 09/08/24 20:00 WBC RBC Hgb Hct MCV MCH MCHC RDW Std Deviation RDW Coeff of [place] Plt Count MPV Immature Gran % (Auto) Neut % (Auto) Lymph % (Auto) [place] % (Auto) Eos % (Auto) Baso % (Auto) Absolute Neuts (auto) Absolute Lymphs (auto) Nucleated RBC % D-Dimer Quant (PE/DVT) Sodium Potassium Chloride Carbon Dioxide Anion Gap BUN Creatinine Estim Creat Clear Calc Est GFR (MDRD) Non-Af BUN/Creatinine Ratio Glucose Calcium Troponin T High Sens Troponin T Hi Sens 2 Hr HCG, Quant 24 H Serum , Qual Urine Color Urine Clarity Urine pH Ur Specific [place] Urine Protein Urine Glucose (UA) Urine Ketones Urine Occult Blood Urine Nitrite Urine Bilirubin Urine Urobilinogen Ur Leukocyte Esterase Urine RBC Urine WBC Ur Squamous Epith Cells Urine Bacteria Urine Mucus Radiography Chest X-Ray - ED: 2 View, Read by ED Physician, Read by Radiologist and No Acute Disease Diagnostic Testing: Clinical Impression(s) from Imaging Studies Chest X-Ray 09/08/24 17:49 IMPRESSION: No focal consolidations. Reading Location: [facility] Obstetrics Ultrasound 09/08/24 20:13 IMPRESSION: Left adnexal lesion. Ectopic can not be excluded. No visualized intrauterine . Reading Location: [place] [id number] PA and lateral chest x-ray was obtained. There are 2 views. On my independent interpretation, lung cormier are clear. There is normal cardiac silhouette. Bony thorax is normal. There is no acute process noted. Radiologist also interpreted the x-ray and agrees. Transvaginal ultrasound was obtained. There is a left adnexal lesion. Ectopic cannot be excluded. There is no other acute abnormality noted. This was interpreted by the radiologist and was also dependently reviewed by myself. EKG Initial EKG: Attestation: I personally reviewed and interpreted this EKG as follows: Interpretation: No Acute Injury Pattern and Sinus Tachycardia (108) Comments: EKG was obtained. On my independent interpretation, it showed a sinus tachycardia with a rate of 108. SD interval, QRS interval, and QTc intervals were all normal. Bedias was normal. There are no acute ST or T wave changes. Prior EKG tracings: not available for review Prior: No Prior Treatment and Re-Evaluation :: Patient was given IV fluids. Patient's heart rate improved after this. Patient advised of her findings. Case was discussed with Dr. Calvert from [facility]. She will follow-up with the patient as an outpatient. She felt that the ultrasound findings are likely resorbing ectopic . Patient was instructed to drink plenty of fluids. Patient was instructed to return if worse in any way. Patient understood and was agreeable with the plan. All questions were answered. Discharge Plan Triage Chief Complaint: Palpitations ED Provider: Tariq Brower Dx/Rx/DC Orders Clinical Impression: Tachycardia, Ectopic Instructions: ED Palpitations Prescriptions: No Action clobetasol 0.05 % ointment 1 applic topical DAILY PRN (Reason: ECZEMA) Patient Comments: PT NOT USING WHILE . epinephrine 0.3 mg/0.3 mL auto-injector 0.3 mg IM Q4H PRN (Reason: anaphylaxis) Qty: 2 1RF metoclopramide HCl [Reglan] 5 mg tablet 5 mg PO .AC and at bedtime Qty: 20 0RF Primary Care Provider: Lyle Nuñez Referrals: Agatha Torres DO [Med Staff - Active Staff] - 2 Days Lyle Nuñez MD [Primary Care Provider] - Print Language: Panamanian Disposition Disposition: Home, Self Care
--- NOTE | 2024-09-08 17:49 | RAD_ITS ---
PROCEDURE: CHEST PA AND LATERAL 09/08/2024 REASON FOR EXAM: PALPITATIONS TECHNIQUE: Frontal and lateral views of the chest. COMPARISON: None FINDINGS: No focal consolidations. No pleural effusion or pneumothorax. No acute fractures. Cardiac silhouette is unchanged. RAD/Chest PA and Lateral IMPRESSION: No focal consolidations. Reading Location: [id number]
--- NOTE | 2024-09-08 17:49 | EKG12_ITS ---
Test Reason : CP/PALPITATIONS Blood Pressure : */* mmHG Vent. Rate : 108 BPM Atrial Rate : 108 BPM P-R Int : 138 ms QRS Dur : 66 ms QT Int : 304 ms P-R-T Axes : 45 1 7 degrees QTcB Int : 407 ms Sinus tachycardia Otherwise normal ECG Confirmed by Senthil Keller ([id number]), editor map TERRI CONKLIN ([id number]) on 09/09/2024 10:18:06 AM Referred By: Confirmed By: Senthil Keller
[2024-09-08] MEDS: 0.9% Normal Saline (1000mL) 1,000 ML 1000 ML IV (17:59)
[2024-09-08 18:19] LABS: Internal QC Validated? YES +Cl - CLEAR BKGD
[2024-09-08 18:20] LABS: Pregnancy, Serum, hCG Quali. POSITIVE Negative; Record Kit Lot#, Serum Preg. 947241
[2024-09-08 18:27] LABS: Absolute Neutrophil Count 5.6 X10^3/uL (2.0-7.7); Basophil# 0.04 X10^3/uL; Basophil% 0.4 % (0-1); Eosinophil# 0.45 X10^3/uL; Hematocrit 39.2 % (37-47); Hemoglobin 12.8 g/dL (12.0-15.0); Lymphocyte % 23.3 % (19-41); Mean Corp Hgb Conc 32.7 g/dL (32-36); Mean Corpuscular Hgb 27.6 pg (27.0-32.0); Mean Corpuscular Volume 84.7 fL (81-99); Mean Platelet Vol. 9.3 fl (6.2-12.0); Monocyte# 0.81 X10^3/uL; NRBC Flagged by Analyzer 0 % (0-5); Neutrophil # 5.58 X10^3/uL (2.7-7.7); Neutrophil % 61.9 % (47-70); Platelet Count 491 K/mm3 (150-450); RBC Distribution Width CV 14.1 % (11.6-14.6); RBC Distribution Width SD 42.7 fl (35.1-43.9); Red Blood Count 4.63 M/mm3 (4.2-5.4)
[2024-09-08 18:33] LABS: D-Dimer Quantitative (DVT/PE) 0.35 FEU/ug/m (0.27-0.49)
[2024-09-08 18:44] VITALS: BP 124/72; PULSE 89; RESP 14; O2SAT 98
[2024-09-08 18:55] LABS: Bacteria 0 SEEN /hpf (None Seen); Mucous, Urine 0 SEEN /hpf (<or=2+)
[2024-09-08 18:56] LABS: Anion Gap 16 (5-15); BUN 7 mg/dL (4-19); BUN/Creat Ratio 7.6 RATIO (10-20); Calcium,Total 9.8 mg/dL (7.6-11.0); Carbon Dioxide 21.4 mmol/L (21.0-32.0); Chloride 103 mmol/L (98-108); Creatinine, Serum 0.97 mg/dL (0.70-1.20); EST Glomerular Filtration Rate 79 (>60); Estimated Creatinine Clearance 85.69 ml/min (50-250); Glucose 104 mg/dL (70-99); Potassium 3.5 mmol/L (3.3-5.1); Sodium Level 140 mmol/L (133-145); Troponin T High Sensitivity 10 ng/L (<=14)
[2024-09-08 19:01] LABS: Color, Urine Yellow (Yellow); Glucose, Dipstick Normal (Normal); Ketone-Dipstick Negative (Negative); Leukocyte Esterase-Dipstick 25 /ul (Negative); Nitrite-Dipstick Negative (Negative); Occult Blood-Urine 250 /ul (Negative); Protein-Dipstick 30 mg/dl (Negative); Specific Gravity, Urine 1.015 (1.002-1.030); Urine Bilirubin Dipstick Negative (Negative); Urine Clarity Clear (Clear); Urine Urobilinogen Normal (Normal); Urine pH 6.5 (5.0 - 8.0)
[2024-09-08 19:19] LABS: Squamous Epithelial Cells - UA 0-5 SEEN /hpf (5-10)
[2024-09-08 19:20] LABS: Red Blood Cells-Urine 0-5 SEEN /hpf (0-5); White Blood Cells 0-5 SEEN /hpf (0-5)
[2024-09-08 19:58] LABS: Troponin T High Sens 2 HR < 6 ng/L (<=14)
[2024-09-08 20:00] VITALS: BP 121/78; PULSE 98; RESP 17; O2SAT 100
--- NOTE | 2024-09-08 20:13 | US_ITS ---
PROCEDURE: TRANSVAGINAL W/PREG US 09/08/2024 REASON FOR EXAM: PELVIC PAIN TECHNIQUE: High resolution obstetric ultrasound performed using a 2D transducer. Standard views obtained, including biometry, anatomy survey, and Doppler studies. COMPARISON: 08/20/2024. FINDINGS No gestational sac or pole visualized. Uterus measures 9.5 x 4.2 x 2.7 cm. No fibroids. The cervix is closed. The endometrium measures 3 mm with a tiny amount of internal free fluid. No free fluid in the cul-de-sac. Right ovary measures 2.3 x 1.5 x 1.3 cm with preserved vascular flow. Left ovary measures 2.1 x 1.4 x 1.1 cm with preserved vascular flow. Abutting the left ovary is a 4.3 x 2.9 x 2.6 cm complex region. No definite gestational sac or pole. US/Transvaginal w/Preg US IMPRESSION: Left adnexal lesion. Ectopic can not be excluded. No visualized intrauterine . Reading Location: [id number]
[2024-09-08 21:20] LABS: hCG Titer Quant., Serum 24 mIU/mL (<9 non-preg)
[2024-09-08 22:12] VITALS: BP 119/70; PULSE 100; RESP 18; TEMP 36.4; O2SAT 99
== END 2024-09-08 22:13 | disposition home or self-care (01) ==
PROVIDERS: Emergency Provider Emergency Medicine; PCP Internal Medicine; Visit Provider Emergency Medicine
DX: O00.90 Unspecified ectopic pregnancy without intrauterine pregnancy (principal); O08.89 Other complications following an ectopic and molar pregnancy
CPT/HCPCS: 36415; 71046; 76817; 80048; 81001; 84484; 84702; 84703; 85025; 85379; 93005; 96360; 96361; 99283; A4216

== ENCOUNTER → 2024-09-15 | Outpatient (CLI) | payer MEDICAID, SELFPAY ==
[2024-09-15 16:41] LABS: hCG Titer Quant., Serum 2 mIU/mL (<9 non-preg)
== END | disposition home or self-care (01) ==
LOC: LAB 14:16
PROVIDERS: PCP Internal Medicine; Referring Provider Obstetrics & Gynecology; Visit Provider Obstetrics & Gynecology
DX: O00.90 Unspecified ectopic pregnancy without intrauterine pregnancy (principal)
CPT/HCPCS: 36415; 84702